=== PATIENT | female | born 1940 | race Caucasian/White ===

== ENCOUNTER 2019-05-28 12:48 | Outpatient (CLI) | payer MEDICARE, BC, SELFPAY ==
[2019-05-28 14:24] LABS: ALT 37 U/L (12-78); AST 29 U/L (15-37); Albumin 3.4 g/dL (3.4-5.0); Alkaline Phosphatase 59 U/L (46-116); Anion Gap 11.1 mmol/L (3-11); BUN 20 mg/dL (7-18); Bilirubin, Total 0.8 mg/dL (0.2-1.0); CO2 23.9 mmol/L (21.0-32.0); CREATININE 0.66 mg/dL (0.55-1.02); Calcium 8.6 mg/dL (8.5-10.1); Chloride 103 mmol/L (98-107); Glucose 104 mg/dL (70-100); Sodium 138 mmol/L (136-145)
[2019-05-28 14:48] LABS: Vitamin D 25 Total 81.3 ng/ml (30-100)
[2019-05-28 21:41] LABS: CRP, High Sensitivity 0.35 mg/L
[2019-05-29 10:58] LABS: Homocysteine 6.8 umol/L (4.5-12.4)
== END 2019-05-28 13:08 ==
PROVIDERS: PCP Family Medicine; Visit Provider Family Medicine
DX: G30.9 Alzheimer's disease, unspecified (principal); I10 Essential (primary) hypertension
CPT/HCPCS: 36415; 80053; 82306; 83090; 86141

== ENCOUNTER 2021-07-27 12:54 | Outpatient (REF) | payer MEDICARE, BC, SELFPAY ==
[2021-07-27 13:53] LABS: Absolute Basophil Count 0.04 10^3/uL (0.0-0.2); Absolute Eosinophil Count 0.23 10^3/uL (0.0-0.7); Absolute Lymphocyte Count 1.59 10^3/uL (1.2-3.4); Absolute Monocyte Count 0.42 10^3/uL (0.1-0.8); Absolute Neutrophil Count 4.39 10^3/uL (1.2-6.7); Basophils % 0.6; Eosinophils % 3.4; HCT 38.7 % (36.0-46.0); HGB 12.7 g/dL (11.2-15.7); Lymphocytes % 23.8; MCH 30.8 pg (27.0-33.0); MCHC 32.8 % (32.0-36.0); MCV 93.9 fL (80-95); MPV 10.2 fL (8.0-11.0); Monocytes % 6.3; Neutrophils % 65.9; Nucleated RBC 0 %; Platelet Count 198 10^3/uL (130-400); RBC 4.12 10^6/uL (3.93-5.22); RDW 12.4 % (11.7-14.6); RDW-SD 42.8 fL; WBC 6.67 10^3/uL (4.4-10.8)
[2021-07-27 14:03] LABS: ALT 23 U/L (14-59); AST 28 U/L (15-37); Albumin 3.1 g/dL (3.4-5.0); Alkaline Phosphatase 50 U/L (46-116); BUN 25 mg/dL (7-18); Bilirubin, Total 0.6 mg/dL (0.2-1.0); CREATININE 0.8 mg/dL (0.55-1.02); Calcium 8.6 mg/dL (8.5-10.1); Chloride 106 mmol/L (98-107); Glucose 102 mg/dL (74-106); Potassium 4.7 mmol/L (3.5-5.1); Sodium 141 mmol/L (136-145); Total Protein 6.2 g/dL (6.4-8.2)
== END 2021-07-27 12:55 | disposition home or self-care (01) ==
LOC: LBN 12:54
PROVIDERS: PCP Family Medicine; Visit Provider Physician Assistant Medical
DX: R10.9 Unspecified abdominal pain (principal)
CPT/HCPCS: 80053; 85025

== ENCOUNTER 2021-07-27 21:13 | Outpatient (REF) | payer MEDICARE, BC, SELFPAY | END 2021-07-27 21:14 | disposition home or self-care (01) | LOC: LBN 21:13 | PROVIDERS: PCP Family Medicine; Visit Provider Physician Assistant Medical | DX: R10.84 Generalized abdominal pain (principal) | CPT/HCPCS: 87077; 87086; 87186 ==

== ENCOUNTER → 2022-06-18 15:49 | Outpatient (CLI) | payer MEDICARE, BC, SELFPAY ==
--- NOTE | 2022-06-18 | DI.RAD_ITS ---
Exam(s) XR HAND RT COMPLETE EXAM: XR HAND RT COMPLETE CLINICAL HISTORY: PAIN IN RIGHT HAND--M79.641. TECHNIQUE: 2D digital imaging was performed. COMPARISON: No exams were available for comparison FINDINGS: 3 views Age-related osteopenia. There is no evidence of acute fracture or dislocation. Multilevel degenerat dillan changes are noted, particularly in the DIP joint of the 2nd-index finger and 1st carpometacarpal joint of the thumb as well as the metacarpophalangeal joint of the thumb. Also in the bones of the w rist at the triscaphe joint. No radiopaque foreign body. No osseous lesions. IMPRESSION: Degenerative changes. No acute fracture. DATA REPOSITORY: RADIATION DOSE DELIVERED:
== END ==
PROVIDERS: PCP Family Medicine; Visit Provider Nurse Practitioner Family
DX: M79.641 Pain in right hand (principal); M18.11 Unilateral primary osteoarthritis of first carpometacarpal joint, right hand; M19.031 Primary osteoarthritis, right wrist; M85.88 Other specified disorders of bone density and structure, other site
CPT/HCPCS: 73130

== ENCOUNTER 2022-07-07 10:30 | Outpatient (CLI) | payer MEDICARE, BC, SELFPAY ==
[2022-07-07 11:35] LABS: ALT 15 U/L (14-59); AST 18 U/L (15-37); Albumin 3.6 g/dL (3.4-5.0); Alkaline Phosphatase 49 U/L (46-116); Anion Gap 6.3 mmol/L (3-11); BUN 18 mg/dL (7-18); Bilirubin, Total 1.2 mg/dL (0.2-1.0); CO2 31.7 mmol/L (21.0-32.0); CREATININE 0.8 mg/dL (0.55-1.02); Calcium 8.9 mg/dL (8.5-10.1); Chloride 101 mmol/L (98-107); Estimated GFR 73.06 (mL/min/1.73m2); Glucose 114 mg/dL (74-106); Potassium 3.9 mmol/L (3.5-5.1); Sodium 139 mmol/L (136-145); Total Protein 7.4 g/dL (6.4-8.2)
== END 2022-07-07 10:31 | disposition home or self-care (01) ==
PROVIDERS: PCP Family Medicine; Visit Provider Nurse Practitioner Family
DX: U07.1 COVID-19 (principal)
CPT/HCPCS: 36415; 80053

== ENCOUNTER 2022-09-05 16:54 | Outpatient (REF) | payer MEDICARE, BC, SELFPAY ==
[2022-09-05 14:06] LABS: HCT 38.8 % (36.0-46.0); HGB 12.9 g/dL (11.2-15.7); MCH 30.2 pg (27.0-33.0); MCHC 33.2 % (32.0-36.0); MCV 91 fL (80-95); MPV 9.6 fL (8.0-11.0); Platelet Count 239 10^3/uL (130-400); RBC 4.27 10^6/uL (3.93-5.22); RDW 12.5 % (11.7-14.6); RDW-SD 41.2 fL; WBC 6.31 10^3/uL (4.4-10.8)
[2022-09-05 14:22] LABS: Anion Gap 6.4 mmol/L (3-11); BUN 30 mg/dL (7-18); CO2 29.6 mmol/L (21.0-32.0); CREATININE 0.7 mg/dL (0.55-1.02); Calcium 8.9 mg/dL (8.5-10.1); Chloride 107 mmol/L (98-107); Estimated GFR 85.76 (mL/min/1.73m2); FREE T4 1.02 ng/dL (0.76-1.46); Glucose 88 mg/dL (74-106); Sodium 143 mmol/L (136-145); TSH 1.24 uIU/mL (0.36-3.74)
[2022-09-05 21:55] LABS: T3,Free 3.3 pg/mL (2.8-5.3)
== END 2022-09-05 16:55 | disposition home or self-care (01) ==
LOC: LBN 16:54
PROVIDERS: PCP Family Medicine; Visit Provider Physician Assistant
DX: R42 Dizziness and giddiness (principal)
CPT/HCPCS: 80048; 85027; 84439; 84443; 84481

== ENCOUNTER 2023-09-12 19:23 | Emergency (ER) | payer MEDICARE, BC, SELFPAY ==
[2023-09-12 19:28] VITALS: BP 144/76; PULSE 80; RESP 16; TEMP 36.2; O2SAT 96
--- OUTSIDE RECORDS SUMMARY | 2023-09-12 19:32 | XMS_ITS | Referral Summary ---
Author Name Unknown Organization [facility] Address [address] [place] [address] Encounter Date(s): 01/09/22 - 01/09/22 [facility] [address] [place], [place] [address] Encounter Diagnosis Head injury(Discharge Diagnosis) - 01/09/22 Abrasion(Discharge Diagnosis) - 01/09/22 Discharge Disposition: Home Attending Physician: SONYA PIÑA MD Vital Signs Most recent to oldest [Reference Range]: 1 2 3 Temperature Temporal [36.3-38 DegC] 36.3 DegC (01/09/22 2:40 PM) Heart Rate [50-100 bpm] 73 bpm (01/09/22 4:53 PM) 75 bpm (01/09/22 4:30 PM) 73 bpm (01/09/22 4:06 PM) Respiratory Rate [11-21 br/min] 18 br/min (01/09/22 4:53 PM) 18 br/min (01/09/22 4:30 PM) 18 br/min (01/09/22 4:06 PM) Oxymetry Monitoring Assessment (01/09/22 4:53 PM) Assessment (01/09/22 4:30 PM) Oxygen Saturation [89-101 %] 94 % (01/09/22 4:53 PM) 94 % (01/09/22 4:30 PM) 93 % (01/09/22 4:06 PM) Oxygen Delivery Room air (01/09/22 4:53 PM) Room air (01/09/22 4:30 PM) Room air (01/09/22 4:06 PM) Vital Signs Note Reviewed discharge instructions. Questions answered. (01/09/22 4:53 PM) Wound on back of head irrgated. (01/09/22 4:41 PM) Blood Pressure 111/58mmHg (01/09/22 4:53 PM) 139/75mmHg (01/09/22 4:30 PM) 104/58mmHg (01/09/22 4:06 PM) Height 165 cm (01/09/22 4:06 PM) 165 cm (01/09/22 2:40 PM) CLINICALWEIGHT 0 kg (01/09/22 4:06 PM) 0 kg (01/09/22 2:40 PM) Dosing Weight Type Bed Scale (01/09/22 4:06 PM) Bed Scale (01/09/22 2:40 PM) [place] Body Weight 56.91 kg (01/09/22 4:06 PM) 56.91 kg (01/09/22 2:40 PM) Height Obtained Patient stated (01/09/22 4:06 PM) Patient stated (01/09/22 2:40 PM) Problem List Diagnosis Diagnosis Type Effective Dates Health Status Clini oneyda Service Informant Head injury Discharge Diagnosis 01/09/22 Abrasion Discharge Diagnosis 01/09/22 Allergies, Adverse Reactions, Alerts No Known Allergies Immunizations Given and Recorded Vaccine Date Status Refusal Reason influenza virus vaccine, inactivated 10/10/21 Yan rded SARS-CoV-2 (COVID-19) mRNA-1273 vaccine 09/12/21 R ecorded SARS-CoV-2 (COVID-19) mRNA-1273 vaccine 01/09/21 R ecorded SARS-CoV-2 (COVID-19) mRNA-1273 vaccine 12/12/20 R ecorded Social History Social History Type Response Smoking Status Never entered on: 01/07/22 Functional Status COGNITIVE 01/09/22 Level of Consciousness Alert, Awake, Follows Commands Affect/Behavior Calm Hospital Discharge Instructions Patient Education 01/09/2022 14:38:08 Abrasions Scrapes (Abrasions): Care Instructions Your Care Instructions Scrapes (abrasions) are wounds where your skin has been rubbed or torn off. Most scrapes do not go deep into the skin, but some may remove several layers of skin. Scrapes usually don't bleed much, but they may ooze pinkish fluid. Scrapes on the head or face may appear worse than they are. They may bleed a lot because of the good blood supply to this area. Most scrapes heal well and may not need a bandage. They usually heal within 3 to 7 days. A large, deep scrape may take 1 to 2 weeks or longer to heal. A scab may form on some scrapes. Follow-up care is a naranjo part of your treatment and safety. Be sure to make and go to all appointments, and call your doctor if you are having problems. It's also a good idea to know your test resultsand keep a list of the medicines you take. How can you care for yourself at home? If your doctor told you how to care for your wound, follow your doctor's instructions. If you did not get instructions, follow this general advice: ??? Wash the scrape with clean water 2 times a day. Don't use hydrogen peroxide or alcohol, which can slow healing. ??? You may cover the scrape with a thin layer of petroleum jelly, such as Vaseline, and a nonstickbandage. ??? Apply more petroleum jelly and replace the bandage as needed. ??? Prop up the injured area on a pillow anytime you sit or lie down during the next 3 days. Try tokeep it above the level of your heart. This will help reduce swelling. ??? Be safe with medicines. Take pain medicines exactly as directed. ??? If the doctor gave you a prescription medicine for pain, take it as prescribed. ??? If you are not taking a prescription pain medicine, ask your doctor if you can take an xtnf-fxx-feflfah medicine. When should you call for help? Call your doctor now or seek immediate medical care if: ??? You have signs of infection, such as: ??? Increased pain, swelling, warmth, or redness around the scrape. ??? Red streaks leading from the scrape. ??? Pus draining from the scrape. ??? A fever. ??? The scrape starts to bleed, and blood soaks through the bandage. Oozing small amounts of blood is normal. Watch closely for changes in your health, and be sure to contact your doctor if the scrape is not getting better each day. Where can you learn more? Go to https://www.healthwise.net/patientEd Enter A374 in the search box to learn more about Scrapes (Abrasions): Care Instructions. Current as of: August 22, 2020?Content Version: 12.9 ?? [employer]. Care instructions adapted under license by your healthcare professional. If you have questions about a medical condition or this instruction, always ask your healthcare professional. [employer] disclaims any warranty or liability for your use of this information. Head Injury: Closed: General Info Learning About a Closed Head Injury What is a closed head injury? A closed head injury happens when your head gets hit hard. The strong force of the blow causes yourbrain to shake in your skull. This movement can cause the brain to bruise, swell, or tear. Sometimes nerves or blood vessels also get damaged. This can cause bleeding in or around the brain. A concussion is a type of closed head injury. What are the symptoms? If you have a mild concussion, you may have a mild headache or feel not quite right. These symptoms are common. They usually go away over a few days to 4 weeks. But sometimes after a concussion, you feel like you can't function as well as before the injury. And you have new symptoms. This is called postconcussive syndrome. You may: ??? Find it harder to solve problems, think, concentrate, or remember. ??? Have headaches. ??? Have changes in your sleep patterns, such as not being able to sleep or sleeping all the time. ??? Have changes in your personality. ??? Not be interested in your usual activities. ??? Feel angry or anxious without a clear reason. ??? Lose your sense of taste or smell. ??? Be dizzy, lightheaded, or unsteady. It may be hard to stand or walk. How is a closed head injury treated? Any person who may have a concussion needs to see a doctor. Some people have to stay in the hospital to be watched. Others can go home safely. If you go home, follow your doctor's instructions. Sean crump will tell you if you need someone to watch you closely for the next 24 hours or longer. Rest is the best treatment. Get plenty of sleep at night. And try to rest during the day. ??? Avoid activities that are physically or mentally demanding. These include housework, exercise, and schoolwork. And don't play video games, send text messages, or use the computer. You may need tochange your school or work schedule to be able to avoid these activities. ??? Ask your doctor when it's okay to drive, ride a bike, or operate machinery. ??? Take an xlun-vib-chrcpwa pain medicine, such as acetaminophen (Tylenol), ibuprofen (Advil, Motrin), or naproxen (Aleve). Be safe with medicines. Read and follow all instructions on the label. ??? Check with your doctor before you use any other medicines for pain. ??? Do not drink alcohol or use illegal drugs. They can slow recovery. They can also increase your risk of getting a second head injury. Follow-up care is a naranjo part of your treatment and safety. Be sure to make and go to all appointments, and call your doctor if you are having problems. It's also a good idea to know your test resultsand keep a list of the medicines you take. Where can you learn more? Go to https://www.[employer].net/patientEd Enter E235 in the search box to learn more about Learning About a Closed Head Injury. Current as of: June 07, 2020?Content Version: 12.9 ?? [employer]. Care instructions adapted under license by your healthcare professional. If you have questions about a medical condition or this instruction, always ask your healthcare professional. [employer] disclaims any warranty or liability for your use of this information. Follow Up Care 01/09/2022 14:38:08 With:*Follow up with primary care provider Address:Unknown When:1 Week
--- OUTSIDE RECORDS SUMMARY | 2023-09-12 19:32 | XMS_ITS | Referral Summary ---
Author Name Unknown Organization [facility] Address [address] [place] [address] Encounter Date(s): 03/29/20 - 03/29/20 [facility] [address] [place] [address]- Encounter Diagnosis Cystitis(Discharge Diagnosis) - 03/29/20 Discharge Disposition: Home Attending Physician: ANAND PÉREZ DO Vital Signs Most recent to oldest [Reference Range]: 1 2 Temperature Temporal [36.3-38 DegC] 36.2 DegC *LOW* (03/29/20 1:38 PM) Heart Rate [50-100 bpm] 75 bpm (03/29/20 5:03 PM) 87 bpm (03/29/20 1:38 PM) Respiratory Rate [11-21 br/min] 18 br/mi n (03/29/20 5:03 PM) 18 br/min (03/29/20 1:38 PM) Oxygen Saturation [89-101 %] 96 % (03/29/20 5:03 PM) 91 % (03/29/20 1:38 PM) Oxygen Delivery Room air (03/29/20 5:03 PM) Blood Pressure 121/82mmHg (03/29/20 5:03 PM) 162/60mmHg (03/29/20 1:38 PM) Height 0 cm (03/29/20 3:43 PM) CLINICALWEIGHT 58.40 kg (03/29/20 3:43 PM) 58.40 kg (03/29/20 1:38 PM) Dosing Weight Type Standing Scale (03/29/20 3:43 PM) Standing Scale (03/29/20 1:38 PM) Height Obtained Patient stated (03/29/20 3:43 PM) Problem List Diagnosis Diagnosis Type Effective Dates Health Status Clini oneyda Service Informant Cystitis Discharge Diagnosis 03/29/20 Allergies, Adverse Reactions, Alerts No Known Allergies Medications cephalexin 500 mg oral capsule 500 mg = 1 Cap(s), Oral, Q12H, X 5 Day(s), # 10 Cap(s), Refill(s) 0, Pharmacy: [id number], 165, cm, 10/19/19 7:11:00 MST, Height, 58.4, kg, 03/29/20 15:43:00 MST, CLINICALWEIGHT Start Date: 03/29/20 Stop Date: 04/03/20 Status: Ordered phenazopyridine 100 mg oral tablet 100 mg = 1 Tab(s), Oral, TID, PRN Urinary Discomfort, X 2 Day(s), # 6 Tab(s), Refill(s) 0, Pharmacy: [facility] #[id number], 165, cm, 10/19/19 7:11:00 MST, Height, 58.4, kg, 03/29/20 15:43:00 MST, CLINICALWEIGHT Start Date: 03/29/20 Stop Date: 03/31/20 Status: Ordered Results Most recent to oldest [Reference Range]: 1 UA Mucus Few (03/29/20 3:30 PM) Urine Microscopic Yes *NA* (03/29/20 3:30 PM) UA Clarity [Clear] Cloudy *NA* (03/29/20 3:30 PM) UA Bacteria Few *ABN* (03/29/20 3:30 PM) UA Bili [Negative] Negative (03/29/20 3:30 PM) UA Blood [Negative] Large *ABN* (03/29/20 3:30 PM) UA Color [Yellow] Dark-Yellow (03/29/20 3:30 PM) UA Glucose [Negative mg/dL] Negative mg/ dL (03/29/20 3:30 PM) UA Ketones [Negative mg/dL] 5 mg/dL *ABN* (03/29/20 3:30 PM) UA Leuk Est [Negative] Moderate *ABN* (03/29/20 3:30 PM) UA Nitrite [Negative] Positive *ABN* (03/29/20 3:30 PM) UA pH [5.0-8.0 pH] 5.0 pH (03/29/20 3:30 PM) UA Protein [Negative mg/dL] 30 mg/dL *ABN* (03/29/20 3:30 PM) UA RBC [0-2 cells/hpf] 242 cells/hpf *HI* (03/29/20 3:30 PM) UA Spec Grav [1.000-1.030] 1.017 (03/29/20 3:30 PM) UA Epithelial [0-1 cells/hpf] <1 cells/h pf (03/29/20 3:30 PM) UA Urobilinogen [<2.0] <2.0 (03/29/20 3:30 PM) UA WBC [0-2 cells/hpf] 68 cells/hpf *HI* (03/29/20 3:30 PM) Microbiology Reports TEST:Urine Culture STATUS:Order in Progress BODY SITE: SOURCE:Urine, Clean Catch COLLECTED DATE/TIME:03/29/20 3:30 PM PRELIMINARY REPORT >100,000 cfu/ml Escherichia coli Susceptibility to follow. Social History Social History Type Response Smoking Status Never (less than 100 in lifetime) entered on: 03/29/20 Functional Status COGNITIVE 03/29/20 Level of Consciousness Alert Affect/Behavior Calm, Cooperative Hospital Discharge Instructions Patient Education 03/29/2020 13:28:13 Urinary Tract Infection Urinary Tract Infection Urinary tract infections (UTIs) can develop anywhere along your urinary tract. Your urinary tract is your body's drainage system for removing wastes and extra water. Your urinary tract includes two kidneys, two ureters, a bladder, and a urethra. Your kidneys are a pair of ding-shaped organs. Each kidney is about the size of your fist. They are located below your ribs, one on each side of your spine. CAUSES Infections are caused by microbes, which are microscopic organisms, including fungi, viruses, and bacteria. These organisms are so small that they can only be seen through a microscope. Bacteria are the microbes that most commonly cause UTIs. SYMPTOMS Symptoms of UTIs may vary by age and gender of the patient and by the location of the infection. Symptoms in young women typically include a frequent and intense urge to urinate and a painful, burning feeling in the bladder or urethra during urination. Older women and men are more likely to be tired, shaky, and weak and have muscle aches and abdominal pain. A fever may mean the infection is in your kidneys. Other symptoms of a kidney infection include pain in your back or sides below the ribs, nausea, and vomiting. DIAGNOSIS To diagnose a UTI, your caregiver will ask you about your symptoms. Your caregiver also will ask toprovide a urine sample. The urine sample will be tested for bacteria and white blood cells. White blood cells are made by your body to help fight infection. TREATMENT Typically, UTIs can be treated with medication. Because most UTIs are caused by a bacterial infection, they usually can be treated with the use of antibiotics. The choice of antibiotic and length of treatment depend on your symptoms and the type of bacteria causing your infection. HOME CARE INSTRUCTIONS ?If you were prescribed antibiotics, take them exactly as your caregiver instructs you. Finish the medication even if you feel better after you have only taken some of the medication. ?Drink enough water and fluids to keep your urine clear or pale yellow. ?Avoid caffeine, tea, and carbonated beverages. They tend to irritate your bladder. ?Empty your bladder often. Avoid holding urine for long periods of time. ?Empty your bladder before and after sexual intercourse. ?After a bowel movement, women should cleanse from front to back. Use each tissue only once. SEEK MEDICAL CARE IF: ?You have back pain. ?You develop a fever. ?Your symptoms do not begin to resolve within 3 days. SEEK IMMEDIATE MEDICAL CARE IF: ?You have severe back pain or lower abdominal pain. ?You develop chills. ?You have nausea or vomiting. ?You have continued burning or discomfort with urination. MAKE SURE YOU: ?Understand these instructions. ?Will watch your condition. ?Will get help right away if you are not doing well or get worse. This information is not intended to replace advice given to you by your health care provider. Make sure you discuss any questions you have with your health care provider. Document Released: 07/31/2006 Document Revised: 11/11/2015 Document Reviewed: 11/28/2012 [employer] Patient Education ??2016 [employer] Follow Up Care 03/29/2020 13:28:13 With:Please return to the emergency room if symptoms worsen or new symptoms occur. Please follow-up with your primary care provider by telephone tomorrow and schedule an appointment soon. Address: When:Call for next available appointment
--- OUTSIDE RECORDS SUMMARY | 2023-09-12 19:32 | XMS_ITS | Referral Summary ---
Author Name Unknown Organization [facility] Address [address] [place] [address] Encounter Date(s): 12/07/20 - 12/07/20 [facility] [address] [place] [address]- Encounter Diagnosis Shingles(Discharge Diagnosis) - 12/07/20 Pain of right side of body(Discharge Diagnosis) - 12/07/20 Discharge Disposition: Home Attending Physician: RODNEY NUÑEZ, MIMI Bae Vital Signs Most recent to oldest [Refer ence Range]: 1 2 Temperature Temporal [36.3-38 DegC] 36.8 DegC (12/07/20 11:12 AM) Heart Rate [50-100 bpm] 71 bpm (12/07/20 11:43 AM) 77 bpm (12/07/20 11:12 AM) Respiratory Rate [11-21 br/min] 18 br/mi n (12/07/20 11:43 AM) 18 br/min (12/07/20 11:12 AM) Oxygen Saturation [89-101 %] 97 % (12/07/20 11:43 AM) 96 % (12/07/20 11:12 AM) Vital Signs Note SEE FLOW SHEET (12/07/20 12:44 PM) PLAN OF CARE REVIEWED [facility] PT AND (12/07/20 12:43 PM) Blood Pressure 128/67mmHg (12/07/20 11:43 AM) 113/61mmHg (12/07/20 11:12 AM) Height 170 cm (12/07/20 11:43 AM) 170 cm (12/07/20 11:12 AM) CLINICALWEIGHT 56.8 kg (12/07/20 11:43 AM) 56.8 kg (12/07/20 11:12 AM) Dosing Weight Type Standing Scale (12/07/20 11:43 AM) Standing Scale (12/07/20 11:12 AM) Body Mass Index 19.65 kg/m2 (12/07/20 11:43 AM) 19.65 kg/m2 (12/07/20 11:12 AM) [place] Body Weight 61.44 kg (12/07/20 11:43 AM) 61.44 kg (12/07/20 11:12 AM) Height Obtained Patient stated (12/07/20 11:43 AM) Patient stated (12/07/20 11:12 AM) Problem List Diagnosis Diagnosis Type Effective Dates Health Status Cl inical Service Informant Shingles Discharge Diagnosis 12/07/20 Pain of right side of body Discharge Diagnosis 12/07/20 Allergies, Adverse Reactions, Alerts No Known Allergies Medications ibuprofen 600 mg oral tablet 600 mg = 1 Tab(s), Oral, Q8H, # 30 Tab(s), Refill(s) 0, Pharmacy: [facility]/pharmacy #[id number], 170, cm, 12/07/20 11:43:00 MST, Height, 56.8, kg, 12/07/20 11:43:00 MST, CLINICALWEIGHT Start Date: 12/07/20 Stop Date: 01/06/21 Status: Ordered Valtrex 500 mg oral tablet 500 mg = 1 Tab(s), Oral, BID, X 7 Day(s), # 14 Tab(s), Refill(s) 0, [id number], 170, cm, 12/07/20 11:43:00 MST, Height, 56.8, kg, 12/07/20 11:43:00 MST, CLINICALWEIGHT Start Date: 12/07/20 Stop Date: 12/14/20 Status: Ordered Social History Social History Type Response Smoking Status Never (less than 100 in lifetime) entered on: 12/07/20 Functional Status COGNITIVE 12/07/20 Level of Consciousness Alert, Awake Affect/Behavior Calm Hospital Discharge Instructions Patient Education 12/07/2020 11:09:20 Shingles Shingles - possible Shingles, which is also known as herpes zoster, is an infection that causes a painful skin rash andfluid-filled blisters. It is caused by a virus. Shingles only develops in people who: ??? Have had chickenpox. ??? Have been given a medicine to protect against chickenpox (have been vaccinated). Shingles is rare in this group. What are the causes? Shingles is caused by varicella-zoster virus (VZV). This is the same virus that causes chickenpox. After a person is exposed to VZV, the virus stays in the body in an inactive (dormant) state. Shingles develops if the virus is reactivated. This can happen many years after the first (initial) exposure to VZV. It is not known what causes this virus to be reactivated. What increases the risk? People who have had chickenpox or received the chickenpox vaccine are at risk for shingles. Shingles infection is more common in people who: ??? Are older than age 60. ??? Have a weakened disease-fighting system (immune system), such as people with: ? HIV. ? AIDS. ? Cancer. ??? Are taking medicines that weaken the immune system, such as transplant medicines. ??? Are experiencing a lot of stress. What are the signs or symptoms? Early symptoms of this condition include itching, tingling, and pain in an area on your skin. Pain may be described as burning, stabbing, or throbbing. A few days or weeks after early symptoms start, a painful red rash appears. The rash is usually on one side of the body and has a band-like or belt-like pattern. The rash eventually turns into fluid-filled blisters that break open, change into scabs, and dry up in about 2???3 weeks. At any time during the infection, you may also develop: ??? A fever. ??? Chills. ??? A headache. ??? An upset stomach. How is this diagnosed? This condition is diagnosed with a skin exam. Skin or fluid samples may be taken from the blisters before a diagnosis is made. These samples are examined under a microscope or sent to a lab for testing. How is this treated? The rash may last for several weeks. There is not a specific cure for this condition. Your health care provider will probably prescribe medicines to help you manage pain, recover more quickly, and avoid long-term problems. Medicines may include: ??? Antiviral drugs. ??? Anti-inflammatory drugs. ??? Pain medicines. ??? Anti-itching medicines (antihistamines). If the area involved is on your face, you may be referred to a specialist, such as an eye doctor (onboarding specialist) or an ear, nose, and throat (ENT) doctor (landscape maintenance internship) to help you avoid eye problems, chronic pain, or disability. Follow these instructions at home: Medicines ??? Take ynmp-jeb-oxxmxmb and prescription medicines only as told by your health care provider. ??? Apply an anti-itch cream or numbing cream to the affected area as told by your health care provider. Relieving itching and discomfort ??? Apply cold, wet cloths (cold compresses) to the area of the rash or blisters as told by your health care provider. ??? Cool baths can be soothing. Try adding baking soda or dry oatmeal to the water to reduce itching. Do not bathe in hot water. Blister and rash care ??? Keep your rash covered with a loose bandage (dressing). Wear loose-fitting clothing to help ease the pain of material rubbing against the rash. ??? Keep your rash and blisters clean by washing the area with mild soap and cool water as told by your health care provider. ??? Check your rash every day for signs of infection. Check for: ? More redness, swelling, or pain. ? Fluid or blood. ? Warmth. ? Pus or a bad smell. ??? Do not scratch your rash or pick at your blisters. To help avoid scratching: ? Keep your fingernails clean and cut short. ? Wear gloves or mittens while you sleep, if scratching is a problem. General instructions ??? Rest as told by your health care provider. ??? Keep all follow-up visits as told by your health care provider. This is important. ??? Wash your hands often with soap and water. If soap and water are not available, use hand fire boat engineer. Doing this lowers your chance of getting a bacterial skin infection. ??? Before your blisters change into scabs, your shingles infection can cause chickenpox in people who have never had it or have never been vaccinated against it. To prevent this from happening, avoid contact with other people, especially: ? Babies. ? women. ? Children who have eczema. ? Elderly people who have transplants. ? People who have chronic illnesses, such as cancer or AIDS. Contact a health care provider if: ??? Your pain is not relieved with prescribed medicines. ??? Your pain does not get better after the rash heals. ??? You have signs of infection in the rash area, such as: ? More redness, swelling, or pain around the rash. ? Fluid or blood coming from the rash. ? The rash area feeling warm to the touch. ? Pus or a bad smell coming from the rash. Get help right away if: ??? The rash is on your face or nose. ??? You have facial pain, pain around your eye area, or loss of feeling on one side of your face. ??? You have difficulty seeing. ??? You have ear pain or have ringing in your ear. ??? You have a loss of taste. ??? Your condition gets worse. Summary ??? Shingles, which is also known as herpes zoster, is an infection that causes a painful skin rashand fluid-filled blisters. ??? This condition is diagnosed with a skin exam. Skin or fluid samples may be taken from the blisters and examined before the diagnosis is made. ??? Keep your rash covered with a loose bandage (dressing). Wear loose-fitting clothing to help ease the pain of material rubbing against the rash. ??? Before your blisters change into scabs, your shingles infection can cause chickenpox in people who have never had it or have never been vaccinated against it. This information is not intended to replace advice given to you by your health care provider. Make sure you discuss any questions you have with your health care provider. Document Released: 10/21/2006 Document Revised: 06/25/2018 Document Reviewed: 06/25/2018 [employer] Interactive Patient Education ?? 2020 [employer]. Follow Up Care 12/07/2020 11:09:20 With:*Follow up with primary care provider Address:Unknown When:5 to 7 days
--- OUTSIDE RECORDS SUMMARY | 2023-09-12 19:32 | XMS_ITS | Referral Summary ---
Author Name Unknown Organization [facility] Address [address] [place] [address] Encounter Date(s): 10/10/17 - 10/10/17 [facility] [address] [place] [address]- Discharge Disposition: Home Attending Physician: [place] NUÑEZ, LENCHO SARMIENTO Vital Signs Most recent to oldest [Reference Range]: 1 2 3 Temperature Temporal [36.3-37.8 DegC] 36.7 DegC (10/10/17 10:32 AM) Heart Rate [50-100 bpm] 56 bpm (10/10/17 12:23 PM) 66 bpm (10/10/17 11:14 AM) 77 bpm (10/10/17 10:32 AM) Respiratory Rate [11-21 br/min] 18 br/min (10/10/17 12:23 PM) 18 br/min (10/10/17 11:14 AM) 18 br/min (10/10/17 10:32 AM) Oxygen Saturation [89-101 %] 95 % (10/10/17 12:23 PM) 95 % (10/10/17 11:14 AM) 99 % (10/10/17 10:32 AM) Blood Pressure 136/75mmHg (10/10/17 12:23 PM) 137/75mmHg (10/10/17 11:14 AM) 126/69mmHg (10/10/17 10:32 AM) Height 168 cm (10/10/17 11:14 AM) CLINICALWEIGHT 60 kg (10/10/17 11:14 AM) 60 kg (10/10/17 10:32 AM) Dosing Weight Type Standing Scale (10/10/17 11:14 AM) Bed Scale (10/10/17 10:32 AM) Body Mass Index 21.26 kg/m2 (10/10/17 11:14 AM) [place] Body Weight 59.62 kg (10/10/17 11:14 AM) Height Obtained Patient stated (10/10/17 11:14 AM) Problem List Diagnosis Diagnosis Type Effective Dates Health Status inical Service Informant Knee contusion Discharge Diagnosis 10/10/17 Non-Specified Skin abrasion Discharge Diagnosis 10/10/17 Non-Specified Allergies, Adverse Reactions, Alerts No Known Allergies Medications mupirocin 2% topical cream 1 Judson, Topical, TID, apply a thin film to right elbow and left jiménez, # 30 Gram(s), Refill(s) 0, Pharmacy: [id number], Acute Start Date: 10/10/17 Stop Date: 11/09/17 Status: Ordered naproxen 500 mg oral tablet 500 mg = 1 Tab(s), Oral, BID, PRN Pain, with food, # 60 Tab(s), Refill(s) 0, Pharmacy: [id number] Start Date: 10/10/17 Stop Date: 11/09/17 Status: Ordered Social History Social History Type Response Smoking Status Never smoker Functional Status COGNITIVE 10/10/17 Affect/Behavior Calm 10/10/17 Level of Consciousness Alert, Awake Hospital Discharge Instructions Patient Education 10/10/2017 10:20:55 Cryotherapy, Iesp-gn-Ynip Cryotherapy Cryotherapy is when you put ice on your injury. Ice helps lessen pain and puffiness (swelling) after an injury. Ice works the best when you start using it in the first 24 to 48 hours after an injury. HOME CARE ?Put a dry or damp towel between the ice pack and your skin. ?You may press gently on the ice pack. ?Leave the ice on for no more than 10 to 20 minutes at a time. ?Check your skin after 5 minutes to make sure your skin is okay. ?Rest at least 20 minutes between ice pack uses. ?Stop using ice when your skin loses feeling (numbness). ?Do not use ice on someone who cannot tell you when it hurts. This includes small children and people with memory problems (dementia). GET HELP RIGHT AWAY IF: ?You have white spots on your skin. ?Your skin turns blue or pale. ?Your skin feels waxy or hard. ?Your puffiness gets worse. MAKE SURE YOU: ?Understand these instructions. ?Will watch your condition. ?Will get help right away if you are not doing well or get worse. This information is not intended to replace advice given to you by your health care provider. Make sure you discuss any questions you have with your health care provider. Document Released: 04/08/2009 Document Revised: 01/12/2013 Document Reviewed: 06/12/2012 [employer] Interactive Patient Education ??2016 [employer] Knee Sprain, Xapv-bb-Gmvu Knee Sprain A knee sprain is a tear in the strong bands of tissue that connect the bones (ligaments) of your knee. HOME CARE ?Raise (elevate) your injured knee to lessen puffiness (swelling). ?To ease pain and puffiness, put ice on the injured area. ?Put ice in a plastic bag. ?Place a towel between your skin and the bag. ?Leave the ice on for 20 minutes, 2???3 times a day. ?Only take medicine as told by your doctor. ? Do not leave your knee unprotected until pain and stiffness go away (usually 4???6 weeks). ?If you have a cast or splint, do not get it wet. If your doctor told you to not take it off,cover it with a plastic bag when you shower or bathe. Do not swim. ?Your doctor may have you do exercises to prevent or limit permanent weakness and stiffness. GET HELP RIGHT AWAY IF: ?Your cast or splint becomes damaged. ?Your pain gets worse. ?You have a lot of pain, puffiness, or numbness below the cast or splint. MAKE SURE YOU: ?Understand these instructions. ?Will watch your condition. ?Will get help right away if you are not doing well or get worse. This information is not intended to replace advice given to you by your health care provider. Make sure you discuss any questions you have with your health care provider. Document Released: 10/09/2010 Document Revised: 10/26/2014 Document Reviewed: 06/29/2014 [employer] Interactive Patient Education ??2016 [employer] RICE for Routine Care of Injuries, Tkyu-ld-Mqgr RICE for Routine Care of Injuries Many injuries can be cared for using rest, ice, compression, and elevation (RICE). Using the RICE plan can help to lessen pain and swelling. It can help your body heal. Rest Reduce your normal activities and avoid using the injured part of your body. You can go back to your normal activities when you feel okay and your doctor says it is okay. Ice Do not put ice on your bare skin. ?Put ice in a plastic bag. ?Place a towel between your skin and the bag. ?Leave the ice on for 20 minutes, 2???3 times a day. Do this for as long as told by your doctor. Compression Compression means putting pressure on the injured area. This can be done with an elastic bandage. If an elastic bandage has been applied: ?Remove and reapply the bandage every 3???4 hours or as told by your doctor. ?Make sure the bandage is not wrapped too tight. Wrap the bandage looser if part of your bodybeyond the bandage is blue, swollen, cold, painful, or loses feeling (numb). ?See your doctor if the bandage seems to make your problems worse. Elevation Elevation means keeping the injured area raised. Raise the injured area above your heart or the center of your chest if you can. WHEN SHOULD I GET HELP? You should get help if: ?You keep having pain and swelling. ?Your symptoms are getting worse. WHEN SHOULD I GET HELP RIGHT AWAY? You should get help right away if: ?You have sudden bad pain at or below the area of your injury. ?You have redness or more swelling around your injury. ?You have tingling or numbness at or below the injury that does not go away when you remove the bandage. This information is not intended to replace advice given to you by your health care provider. Make sure you discuss any questions you have with your health care provider. Document Released: 04/08/2009 Document Revised: 01/12/2013 Document Reviewed: 09/28/2015 [employer] Interactive Patient Education ??2016 [employer] Follow Up Care 10/10/2017 10:20:55 With:Follow up with primary care provider Address:Unknown When:Call for next available appointment
--- OUTSIDE RECORDS SUMMARY | 2023-09-12 19:32 | XMS_ITS | Referral Summary ---
Author Name Unknown Organization [facility] Address [address] [place] [address] Encounter Date(s): 01/07/22 - 01/07/22 [facility] [address] [place], [place] [address] Encounter Diagnosis Constipation(Discharge Diagnosis) - 01/07/22 Discharge Disposition: Home Attending Physician: JOSHUA MOREIRA MD Vital Signs Most recent to oldest [Reference Range]: 1 2 Temperature Temporal [36.3-38 DegC] 35.8 DegC *LOW* (01/07/22 10:48 AM) Heart Rate [50-100 bpm] 72 bpm (01/07/22 1:18 PM) 64 bpm (01/07/22 10:48 AM) Respiratory Rate [11-21 br/min] 16 br/mi n (01/07/22 1:18 PM) 16 br/min (01/07/22 10:48 AM) Oxygen Saturation [89-101 %] 97 % (01/07/22 1:18 PM) 97 % (01/07/22 10:48 AM) Oxygen Delivery Room air (01/07/22 1:18 PM) Blood Pressure 146/60mmHg (01/07/22 1:18 PM) 140/62mmHg (01/07/22 10:48 AM) Height 167 cm (01/07/22 11:07 AM) CLINICALWEIGHT 56.95 kg (01/07/22 11:07 AM) 56.95 kg (01/07/22 10:48 AM) Dosing Weight Type Standing Scale (01/07/22 11:07 AM) Standing Scale (01/07/22 10:48 AM) Body Mass Index 20.42 kg/m2 (01/07/22 11:07 AM) [place] Body Weight 58.73 kg (01/07/22 11:07 AM) Height Obtained Estimated (01/07/22 11:07 AM) Problem List Diagnosis Diagnosis Type Effective Dates [facility] In[facility]ant Constipation Discharge Diagnosis 01/07/22 Allergies, Adverse Reactions, Alerts No Known Allergies Medications Colace 100 mg oral capsule 100 mg = 1 Cap(s), Oral, BID, with plenty of water, discontinue for loose stools, # 60 Cap(s), Refill(s) 0, [id number], 167, cm, 01/07/22 11:07:00 MST, Height, 56.95, kg, 01/07/22 11:07:00 MST, CLINICALWEIGHT Start Date: 01/07/22 Stop Date: 02/06/22 Status: Ordered donepezil (Aricept), 5 mg, Oral, Daily Start Date: 01/07/22 Stop Date: 02/06/22 Status: Ordered Dulcolax Laxative 10 mg rectal suppository 10 mg = 1 supp, Rectal, Daily, PRN as needed for constipation, # 10 supp, Refill(s) 0, [id number], 167, cm, 01/07/22 11:07:00 MST, Height, 56.95, kg, 01/07/22 11:07:00 MST, CLINICALWEIGHT Start Date: 01/07/22 Stop Date: 02/06/22 Status: Ordered levothyroxine (Synthroid), 25 mcg = 1 Tab(s), Oral, Daily Start Date: 01/07/22 Stop Date: 02/06/22 Status: Ordered liothyronine 5 mcg, Oral, BID Start Date: 01/07/22 Stop Date: 02/06/22 Status: Ordered memantine 5 mg, Oral, Daily Start Date: 01/07/22 Stop Date: 02/06/22 Status: Ordered senna 15 mg oral tablet 30 mg = 2 Tab(s), Oral, Daily, PRN as needed for constipation, # 24 Tab(s), Refill(s) 0, Pharmacy: [facility]/pharmacy #[id number], Acute, 167, cm, 01/07/22 11:07:00 MST, Height, 56.95, kg, 01/07/22 11:07:00 MST,CLINICALWEIGHT Start Date: 01/07/22 Stop Date: 02/06/22 Status: Ordered sertraline (Zoloft), 50 mg = 1 Tab(s), Oral, Daily Start Date: 01/07/22 Stop Date: 02/06/22 Status: Ordered Results Most recent to oldest [Reference Range]: 1 Urine Microscopic No *NA* (01/07/22 12:46 PM) UA Clarity [Clear] Hazy *NA* (01/07/22 12:46 PM) UA Bili [Negative] Negative (01/07/22 12:46 PM) UA Blood [Negative] Negative (01/07/22 12:46 PM) UA Color [Yellow] Dark-Yellow *NA* (01/07/22 12:46 PM) UA Glucose [Negative mg/dL] Negative mg/ dL (01/07/22 12:46 PM) UA Ketones [Negative mg/dL] 5 mg/dL *ABN* (01/07/22 12:46 PM) UA Leuk Est [Negative] Negative (01/07/22 12:46 PM) UA Nitrite [Negative] Negative (01/07/22 12:46 PM) UA pH [5.0-8.0 pH] 5.0 pH (01/07/22 12:46 PM) UA Protein [Negative] Negative (01/07/22 12:46 PM) UA Spec Grav [1.000-1.030] 1.021 (01/07/22 12:46 PM) UA Urobilinogen [<2.0] 2.0 *ABN* (01/07/22 12:46 PM) Immunizations Given and Recorded Vaccine Date Status Refusal Reason influenza virus vaccine, inactivated 10/10/21 Yan rded SARS-CoV-2 (COVID-19) mRNA-1273 vaccine 09/12/21 R ecorded SARS-CoV-2 (COVID-19) mRNA-1273 vaccine 01/09/21 R ecorded SARS-CoV-2 (COVID-19) mRNA-1273 vaccine 12/12/20 R ecorded Social History Social History Type Response Smoking Status Never entered on: 01/07/22 Hospital Discharge Instructions Patient Education 01/07/2022 10:42:30 Constipation Constipation: Care Instructions Your Care Instructions Constipation means that you have a hard time passing stools (bowel movements). People pass stools from 3 times a day to once every 3 days. What is normal for you may be different. Constipation may occur with pain in the rectum and cramping. The pain may get worse when you try to pass stools. Sometimes there are small amounts of bright red blood on toilet paper or the surface of stools. This is because of enlarged veins near the rectum (hemorrhoids). A few changes in your diet and lifestyle may help you avoid ongoing constipation. Your doctor may also prescribe medicine to help loosen your stool. Some medicines can cause constipation. These include pain medicines and antidepressants. Tell your doctor about all the medicines you take. Your doctor may want to make a medicine change to ease yoursymptoms. Follow-up care is a naranjo part of your treatment and safety. Be sure to make and go to all appointments, and call your doctor if you are having problems. It's also a good idea to know your test resultsand keep a list of the medicines you take. How can you care for yourself at home? Drink plenty of fluids. If you have kidney, heart, or liver disease and have to limit fluids, talk with your doctor before you increase the amount of fluids you drink. ??? Include high-fiber foods in your diet each day. These include fruits, vegetables, beans, and whole grains. ??? Get at least 30 minutes of exercise on most days of the week. Walking is a good choice. You also may want to do other activities, such as running, swimming, cycling, or playing tennis or team sports. ??? Take a fiber supplement, such as Citrucel or Metamucil, every day. Read and follow all instructions on the label. ??? Schedule time each day for a bowel movement. A daily routine may help. Take your time having your bowel movement. ??? Support your feet with a small step stool when you sit on the toilet. This helps flex your hipsand places your pelvis in a squatting position. ??? Your doctor may recommend an tzie-btu-sqxkgei laxative to relieve your constipation. Examples are Milk of Magnesia and MiraLax. Read and follow all instructions on the label. Do not use laxativeson a long-term basis. When should you call for help? Call your doctor now or seek immediate medical care if: ??? You have new or worse belly pain. ??? You have new or worse nausea or vomiting. ??? You have blood in your stools. Watch closely for changes in your health, and be sure to contact your doctor if: ??? Your constipation is getting worse. ??? You do not get better as expected. Where can you learn more? Go to https://www.[employer]net/patientEd Enter P343 in the search box to learn more about Constipation: Care Instructions. Current as of: August 22, 2020?Content Version: 12.9 ?? 7501-0971 [employer]. Care instructions adapted under license by your healthcare professional. If you have questions about a medical condition or this instruction, always ask your healthcare professional. [employer] disclaims any warranty or liability for your use of this information. Follow Up Care 01/07/2022 10:42:30 With:*Follow up with primary care provider Address: When:Call for next available appointment Comments:Call for next available appointment
--- OUTSIDE RECORDS SUMMARY | 2023-09-12 19:32 | XMS_ITS | Referral Summary ---
Author Name Unknown Organization [facility] Address [address] [place] [address] Encounter Date(s): 04/04/19 - 04/04/19 [facility] [address] [place] [address]- Encounter Diagnosis Acute chemical conjunctivitis(Discharge Diagnosis) - 04/04/19 Discharge Disposition: Home Attending Physician: KIRK BRYANT MD Vital Signs Most recent to oldest [Reference Range]: 1 2 Temperature Temporal [36.3-38 DegC] 36.2 DegC *LOW* (04/04/19 3:05 AM) Heart Rate [50-100 bpm] 58 bpm (04/04/19 4:51 AM) 90 bpm (04/04/19 3:05 AM) Respiratory Rate [11-21 br/min] 16 br/mi n (04/04/19 4:51 AM) 18 br/min (04/04/19 3:05 AM) Oxygen Saturation [89-101 %] 96 % (04/04/19 4:51 AM) 95 % (04/04/19 3:05 AM) Oxygen Delivery Room air (04/04/19 4:51 AM) Blood Pressure 132/68mmHg (04/04/19 4:51 AM) 179/81mmHg (04/04/19 3:05 AM) Height 162 cm (04/04/19 3:07 AM) 162 cm (04/04/19 3:05 AM) CLINICALWEIGHT 58.4 kg (04/04/19 3:07 AM) 58.4 kg (04/04/19 3:05 AM) Dosing Weight Type Standing Scale (04/04/19 3:07 AM) Standing Scale (04/04/19 3:05 AM) Body Mass Index 22.25 kg/m2 (04/04/19 3:07 AM) 22.25 kg/m2 (04/04/19 3:05 AM) [place] Body Weight 54.19 kg (04/04/19 3:07 AM) 54.19 kg (04/04/19 3:05 AM) Height Obtained Patient stated (04/04/19 3:07 AM) Problem List Diagnosis Diagnosis Type Effective Dates Health Status Clinical Service Informant Acute chemical conjunctivitis Discharge Diagnosis 04/04/19 Non-Specified Allergies, Adverse Reactions, Alerts No Known Allergies Medications tobramycin 0.3% ophthalmic ointment 1 [place], Eye-Right, TID, # 3.5 Gram(s), Refill(s) 0, Pharmacy: [facility] [id number], Acute Start Date: 04/04/19 Stop Date: 05/04/19 Status: Ordered Social History Social History Type Response Smoking Status Never (less than 100 in lifetime); Type: Cigarettes entered on: 04/04/19 Functional Status COGNITIVE 04/04/19 General Assessment WDL Level of Consciousness Alert, Awake Orientation Oriented x 4 Affect/Behavior Calm, Cooperative Hospital Discharge Instructions Patient Education 04/04/2019 03:01:59 Chemical Conjunctivitis Chemical Conjunctivitis Chemical conjunctivitis is eye inflammation from exposure to an irritant or chemical substance. This causes the clear membrane that covers the white part of your eye and the inner surface of your eyelid (conjunctiva) to become inflamed. When the blood vessels in the conjunctiva become inflamed, theeye may become red, pink, and itchy. Chemical conjunctivitis can occur in one or both eyes. It cannot be spread by one person to anotherperson (noncontagious). CAUSES This condition is caused by exposure to a chemical substance or irritant, such as: ?Smoke. ?Chlorine. ?Soap. ?Fumes. ?Air pollution. RISK FACTORS This condition is more likely to develop in: ?People who live somewhere with high levels of air pollution. ?People who use swimming pools often. SYMPTOMS Symptoms of this condition may include: ?Eye redness. ?Tearing of the eyes. ?Watery eyes. ?Itchy eyes. ?Burning feeling in the eyes. ?Clear drainage from the eyes. ?Swollen eyelids. ?Sensitivity to light. DIAGNOSIS Your health care provider can diagnose this condition from your symptoms and medical history. The health care provider will also do a physical exam. If you have drainage from your eyes, it may be tested to rule out other causes of conjunctivitis. Your health care provider may also use a medical instrument that uses magnified light to examine the eyes (slit lamp). TREATMENT Treatment for this condition involves carefully flushing the chemical out of your eye. You may alsoget antiallergy medicines or eye drops to use at home. HOME CARE INSTRUCTIONS ?Take or apply medicines only as directed by your health care provider. ?Do not touch or rub your eyes. ?Do not wear contact lenses until the inflammation is gone. Wear glasses instead. ?Do not wear eye makeup until the inflammation is gone. ?Apply a cool, clean washcloth to your eye for 10???20 minutes, 3???4 times a day. ?Avoid exposure to the chemical or environment that caused the irritation. Wear eye protection as necessary. SEEK MEDICAL CARE IF: ?Your symptoms get worse. ?You have pus draining from your eye. ?You have new symptoms. ?You have a fever. ?You have a change in vision. ?You have increasing pain. This information is not intended to replace advice given to you by your health care provider. Make sure you discuss any questions you have with your health care provider. Document Released: 07/31/2006 Document Revised: 11/11/2015 Document Reviewed: 08/02/2015 [employer] Interactive Patient Education ??2016 [employer] How to Use Eye Drops and Eye Ointments How to Use Eye Drops and Eye Ointments HOW TO APPLY EYE DROPS Follow these steps when applying eye drops: 1.?Wash your hands. 2.?Tilt your head back. 3.?Put a finger under your eye and use it to gently pull your lower lid downward. Keep that finger in place. 4.?Using your other hand, hold the dropper between your thumb and index finger. 5.?Position the dropper just over the edge of the lower lid. Hold it as close to your eye as youcan without touching the dropper to your eye. 6.?Steady your hand. One way to do this is to lean your index finger against your brow. 7.?Look up. 8.?Slowly and gently squeeze one drop of medicine into your eye. 9.?Close your eye. 10.?Place a finger between your lower eyelid and your nose. Press gently for 2 minutes. This increases the amount of time that the medicine is exposed to the eye. It also reduces side effects thatcan develop if the drop gets into the bloodstream through the nose. HOW TO APPLY EYE OINTMENTS Follow these steps when applying eye ointments: 1.?Wash your hands. 2.?Put a finger under your eye and use it to gently pull your lower lid downward. Keep that finger in place. 3.?Using your other hand, place the tip of the tube between your thumb and index finger with theremaining fingers braced against your cheek or nose. 4.?Hold the tube just over the edge of your lower lid without touching the tube to your lid or eyeball. 5.?Look up. 6.?Line the inner part of your lower lid with ointment. 7.?Gently pull up on your upper lid and look down. This will force the ointment to spread over the surface of the eye. 8.?Release the upper lid. 9.?If you can, close your eyes for 1???2 minutes. Do not rub your eyes. If you applied the ointment correctly, your vision will be blurry for a few minutes. This is normal. ADDITIONAL INFORMATION ?Make sure to use the eye drops or ointment as told by your health care provider. ?If you have been told to use both eye drops and an eye ointment, apply the eye drops first, then wait 3???4 minutes before you apply the ointment. ?Try not to touch the tip of the dropper or tube to your eye. A dropper or tube that has touched the eye can become contaminated. This information is not intended to replace advice given to you by your health care provider. Make sure you discuss any questions you have with your health care provider. Document Released: 01/27/2002 Document Revised: 03/06/2016 Document Reviewed: 10/17/2015 [employer] Interactive Patient Education ??2016 [employer]. Follow Up Care 04/04/2019 03:01:59 With:[facility] Address: [facility] [place], [place] [id number] Business (1) When:Call for next available appointment Comments:Call for next available appointment to be seen this week or see your own eye doctor. REturn if worse. take tylenol for avery if needed. With:Follow up with primary care provider Address:Unknown When:Call for next available appointment
--- OUTSIDE RECORDS SUMMARY | 2023-09-12 19:33 | XMS_ITS | Referral Summary ---
Author Name Unknown Organization [facility] Address [address] [place] [address] Encounter Date(s): 12/20/18 - 12/20/18 [facility] [address] [place] [address]- Encounter Diagnosis SI (sacroiliac) joint dysfunction(Discharge Diagnosis) - 12/20/18 Discharge Disposition: Home Attending Physician: NGUYEN NUÑEZ, LENCHO SARMIENTO Vital Signs Most recent to oldest [Reference Range]: 1 2 Temperature Temporal [36.3-38 DegC] 35.9 DegC *LOW* (12/20/18 4:38 PM) Heart Rate [50-100 bpm] 70 bpm (12/20/18 7:47 PM) 78 bpm (12/20/18 4:38 PM) Respiratory Rate [11-21 br/min] 18 br/mi n (12/20/18 7:47 PM) 18 br/min (12/20/18 4:38 PM) Oxygen Saturation [89-101 %] 96 % (12/20/18 7:47 PM) 96 % (12/20/18 4:38 PM) Oxygen Delivery Room air (12/20/18 4:55 PM) Vital Signs Note Report to ZAK Vuong (12/20/18 7:10 PM) Blood Pressure 122/60mmHg (12/20/18 7:47 PM) 142/67mmHg (12/20/18 4:38 PM) Height 163 cm (12/20/18 4:55 PM) 163 cm (12/20/18 4:38 PM) CLINICALWEIGHT 56 kg (12/20/18 4:55 PM) 56 kg (12/20/18 4:38 PM) Dosing Weight Type Standing Scale (12/20/18 4:55 PM) Standing Scale (12/20/18 4:38 PM) Body Mass Index 21.08 kg/m2 (12/20/18 4:55 PM) 21.08 kg/m2 (12/20/18 4:38 PM) [place] Body Weight 55.09 kg (12/20/18 4:55 PM) 55.09 kg (12/20/18 4:38 PM) Height Obtained Measured (12/20/18 4:55 PM) Problem List Diagnosis Diagnosis Type Effective Dates Health Status Clinical Service Informant SI (sacroiliac) joint dysfunction Discharge Diagnosis 12/20/18 Non-Specified Allergies, Adverse Reactions, Alerts No Known Allergies Medications cyclobenzaprine 10 mg oral tablet 10 mg = 1 Tab(s), Oral, TID, PRN Spasm, # 30 Tab(s), Refill(s) 0, Pharmacy: [facility] [id number] Start Date: 12/20/18 Stop Date: 01/19/19 Status: Ordered IBU 600 mg oral tablet 600 mg = 1 Tab(s), Oral, Q8H, # 30 Tab(s), Refill(s) 0, Pharmacy: [facility] [id number] Start Date: 12/20/18 Stop Date: 01/19/19 Status: Ordered Social History Social History Type Response Smoking Status Never (less than 100 in lifetime) entered on: 12/20/18 Functional Status COGNITIVE 12/20/18 Level of Consciousness Alert, Awake, Appropriate for age Orientation Oriented x 4, Appropriate for age/developmental level Affect/Behavior Calm General Assessment Comment pain resolved , pt being discharged with spouse. Hospital Discharge Instructions Patient Education 12/20/2018 16:38:48 Back Exercises Back Exercises Back exercises help treat and prevent back injuries. The goal of back exercises is to increase the strength of your abdominal and back muscles and the flexibility of your back. These exercises shouldbe started when you no longer have back pain. Back exercises include: ?Pelvic Tilt. Lie on your back with your knees bent. Tilt your pelvis until the lower part ofyour back is against the floor. Hold this position 5 to 10 sec and repeat 5 to 10 times. ?Knee to Chest. Pull first 1 knee up against your chest and hold for 20 to 30 seconds, repeatthis with the other knee, and then both knees. This may be done with the other leg straight or bent, whichever feels better. ?Sit-Ups or Curl-Ups. Bend your knees 90 degrees. Start with tilting your pelvis, and do a partial, slow sit-up, lifting your trunk only 30 to 45 degrees off the floor. Take at least 2 to 3 seconds for each sit-up. Do not do sit-ups with your knees out straight. If partial sit-ups are difficult, simply do the above but with only tightening your abdominal muscles and holding it as directed. ?Hip-Lift. Lie on your back with your knees flexed 90 degrees. Push down with your feet and shoulders as you raise your hips a couple inches off the floor; hold for 10 seconds, repeat 5 to 10 times. ?Back arches. Lie on your stomach, propping yourself up on bent elbows. Slowly press on your hands, causing an arch in your low back. Repeat 3 to 5 times. Any initial stiffness and discomfort should lessen with repetition over time. ?Shoulder-Lifts. Lie face down with arms beside your body. Keep hips and torso pressed to floor as you slowly lift your head and shoulders off the floor. Do not overdo your exercises, especially in the beginning. Exercises may cause you some mild back discomfort which lasts for a few minutes; however, if the pain is more severe, or lasts for more than15 minutes, do not continue exercises until you see your caregiver. Improvement with exercise therapy for back problems is slow. See your caregivers for assistance with developing a proper back exercise program. This information is not intended to replace advice given to you by your health care provider. Make sure you discuss any questions you have with your health care provider. Document Released: 11/28/2005 Document Revised: 01/12/2013 Document Reviewed: 12/15/2015 [employer] Interactive Patient Education ??2016 [employer] Sacroiliac Joint Dysfunction Sacroiliac Joint Dysfunction Sacroiliac joint dysfunction is a condition that causes inflammation on one or both sides of the sacroiliac (SI) joint. The SI joint connects the lower part of the spine (sacrum) with the two upper portions of the pelvis (ilium). This condition causes deep aching or burning pain in the low back. Insome cases, the pain may also spread into one or both buttocks or hips or spread down the legs. CAUSES This condition may be caused by: ?. During , extra stress is put on the SI joints because the pelvis widens. ?Injury, such as: ?Car accidents. ?Sport-related injuries. ?Work-related injuries. ?Having one leg that is shorter than the other. ?Conditions that affect the joints, such as: ?Rheumatoid arthritis. ?Gout. ?Psoriatic arthritis. ?Joint infection (septic arthritis). Sometimes, the cause of SI joint dysfunction is not known. SYMPTOMS Symptoms of this condition include: ?Aching or burning pain in the lower back. The pain may also spread to other areas, such as: ?Buttocks. ?Groin. ?Thighs and legs. ?Muscle spasms in or around the painful areas. ?Increased pain when standing, walking, running, stair climbing, bending, or lifting. DIAGNOSIS Your health care provider will do a physical exam and take your medical history. During the exam, the health care provider may move one or both of your legs to different positions to check for pain. Various tests may be done to help verify the diagnosis, including: ?Imaging tests to look for other causes of pain. These may include: ?MRI. ?CT scan. ?Bone scan. ?Diagnostic injection. A numbing medicine is injected into the SI joint using a needle. If the pain is temporarily improved or stopped after the injection, this can indicate that SI joint dysfunction is the problem. TREATMENT Treatment may vary depending on the cause and severity of your condition. Treatment options may include: ?Applying ice or heat to the lower back area. This can help to reduce pain and muscle spasms. ?Medicines to relieve pain or inflammation or to relax the muscles. ?Wearing a back brace (sacroiliac brace) to help support the joint while your back is healing. ?Physical therapy to increase muscle strength around the joint and flexibility at the joint. This may also involve learning proper body positions and ways of moving to relieve stress on the joint. ?Direct manipulation of the SI joint. ?Injections of steroid medicine into the joint in order to reduce pain and swelling. ?Radiofrequency ablation to burn away nerves that are carrying pain messages from the joint. ?Use of a device that provides electrical stimulation in order to reduce pain at the joint. ?Surgery to put in screws and plates that limit or prevent joint motion. This is rare. HOME CARE INSTRUCTIONS ?Rest as needed. Limit your activities as directed by your health care provider. ?Take medicines only as directed by your health care provider. ?If directed, apply ice to the affected area: ?Put ice in a plastic bag. ?Place a towel between your skin and the bag. ?Leave the ice on for 20 minutes, 2???3 times per day. ?Use a heating pad or a moist heat pack as directed by your health care provider. ?Exercise as directed by your health care provider or physical therapist. ?Keep all follow-up visits as directed by your health care provider. This is important. SEEK MEDICAL CARE IF: ?Your pain is not controlled with medicine. ?You have a fever. ?You have increasingly severe pain. SEEK IMMEDIATE MEDICAL CARE IF: ?You have weakness, numbness, or tingling in your legs or feet. ?You lose control of your bladder or bowel. This information is not intended to replace advice given to you by your health care provider. Make sure you discuss any questions you have with your health care provider. Document Released: 01/17/2010 Document Revised: 03/06/2016 Document Reviewed: 06/28/2015 [employer] Interactive Patient Education ??2016 [employer] Follow Up Care 12/20/2018 16:38:48 With:*Return to Emergency Department Address:Unknown When:As needed Comments:Return immediately if symptoms change or worsen With:*Follow up with primary care provider Address:Unknown When:a few days, as needed Comments:For ED follow-up and continuation of care
--- OUTSIDE RECORDS SUMMARY | 2023-09-12 19:33 | XMS_ITS | Referral Summary ---
Author Name Unknown Organization [facility] Address [address] [place] [address] Encounter Date(s): 06/25/20 - 06/25/20 [facility] [address] [place] [address]- Encounter Diagnosis Chest pain(Discharge Diagnosis) - 06/25/20 Discharge Disposition: Home Attending Physician: BILLIE DOWNEY MD Vital Signs Most recent to oldest [Reference Range]: 1 2 3 Temperature Temporal [36.3-38 DegC] 36.1 DegC *LOW* (06/25/20 6:56 AM) Heart Rate [50-100 bpm] 72 bpm (06/25/20 12:20 PM) 64 bpm (06/25/20 11:10 AM) 64 bpm (06/25/20 8:00 AM) Respiratory Rate [11-21 br/min] 16 br/min (06/25/20 12:20 PM) 16 br/min (06/25/20 11:10 AM) 16 br/min (06/25/20 8:00 AM) Oxygen Saturation [89-101 %] 94 % (06/25/20 12:20 PM) 92 % (06/25/20 11:10 AM) 90 % (06/25/20 8:00 AM) Oxygen Delivery Room air (06/25/20 12:20 PM) Room air (06/25/20 11:10 AM) Room air (06/25/20 8:00 AM) Vital Signs Note breakfast ordered fo r this patient (06/25/20 11:11 AM) Blood Pressure 155/70mmHg (06/25/20 12:20 PM) 159/68mmHg (06/25/20 8:00 AM) 177/81mmHg (06/25/20 6:56 AM) Height 160 cm (06/25/20 8:00 AM) 160 cm (06/25/20 6:56 AM) CLINICALWEIGHT 57 kg (06/25/20 8:00 AM) 57 kg (06/25/20 6:56 AM) Dosing Weight Type Standing Scale (06/25/20 8:00 AM) Bed Scale (06/25/20 6:56 AM) Body Mass Index 22.27 kg/m2 (06/25/20 8:00 AM) 22.27 kg/m2 (06/25/20 6:56 AM) [place] Body Weight 52.38 kg (06/25/20 8:00 AM) 52.38 kg (06/25/20 6:56 AM) Height Obtained Patient stated (06/25/20 8:00 AM) Estimated (06/25/20 6:56 AM) Problem List Diagnosis Diagnosis Type Effective Dates Health Status Clini oneyda Service Informant Chest pain Discharge Diagnosis 06/25/20 Non-Specified Allergies, Adverse Reactions, Alerts No Known Allergies Medications No Known Medications Results Most recent to oldest [Reference Range]: 1 2 HGB [12.0-16.0 g/dL] 14.2 g/dL (06/25/20 7:00 AM) HCT [36.0-48.0 %] 42.4 % (06/25/20 7:00 AM) PLT [139-411 x10^3/uL] 257 x10^3/uL (06/25/20 7:00 AM) Baso Auto [0.0-2.0 %] 1.3 % (06/25/20 7:00 AM) Anion Gap [6-16 mmol/L] 11 mmol/L (06/25/20 9:21 AM) 21 mmol/L *HI* (06/25/20 7:00 AM) Sodium [136-145 mmol/L] 139 mmol/L (06/25/20 9:21 AM) 144 mmol/L (06/25/20 7:00 AM) Potassium [3.4-4.5 mmol/L] 3.9 mmol/L (06/25/20 9:21 AM) 4.1 mmol/L (06/25/20 7:00 AM) Glucose [65-105 mg/dL] 82 mg/dL (06/25/20:21 AM) 93 mg/dL (06/25/20 7:00 AM) eGFR [>=60 mL/min/1.73m^2] >60 mL/min/1. 73m^2 1 (06/25/20:21 AM) >60 mL/min/1.73m^2 2 (06/25/20 7:00 AM) Calcium [8.4-10.2 mg/dL] 8.2 mg/dL *LOW* (06/25/20: AM) 9.1 mg/dL (06/25/20 7:00 AM) Chloride [96-107 mmol/L] 106 mmol/L (06/25/20: AM) 99 mmol/L (06/25/20 7:00 AM) eCrCl 61 mL/min 3 *NA* (06/25/20: AM) 56 mL/min 4 *NA* (06/25/20 7:00 AM) Troponin T [0.00-0.09 ng/mL] 0.01 ng/mL (06/25/20: AM) 0.01 ng/mL (06/25/20 7:00 AM) BNP pro [0-450 pg/mL] 210 pg/mL (06/25/20 7:00 AM) Albumin [3.5-5.0 g/dL] 3.8 g/dL (06/25/20 7:00 AM) Alk Phos [35-104 unit/L] 53 unit/L (06/25/20 7:00 AM) ALT [0-33 unit/L] 16 unit/L (06/25/20 7:00 AM) AST [0-32 unit/L] 26 unit/L (06/25/20 7:00 AM) Bili Total [0.20-1.30 mg/dL] 1.00 mg/dL (06/25/20 7:00 AM) BUN [7-17 mg/dL] 16 mg/dL (06/25/20:21 AM) 18 mg/dL *HI* (06/25/20 7:00 AM) CO2 [22-30 mmol/L] 22 mmol/L (06/25/20: AM) 24 mmol/L (06/25/20 7:00 AM) Creatinine [0.70-1.20 mg/dL] .60 mg/dL *LOW* (06/25/20 9:21 AM) .66 mg/dL *LOW* (06/25/20 7:00 AM) Eos Auto [0.0-6.0 %] 3.0 % (06/25/20 7:00 AM) Ethanol [0-10 mg/dL] <10 mg/dL (06/25/20 7:00 AM) INR [1.00-3.00] 0.95 *LOW* (06/25/20 7:00 AM) Lymph Auto [24.0-44.0 %] 31.9 % (06/25/20 7:00 AM) MCH [27.4-33.4 pg] 30.4 pg (06/25/20 7:00 AM) MCHC [32.0-36.0 g/dL] 33.4 g/dL (06/25/20 7:00 AM) MCV [79.9-97.7 fL] 91.2 fL (06/25/20 7:00 AM) [place] Auto [1.0-7.0 %] 6.5 % (06/25/20 7:00 AM) MPV [7.9-11.9 fL] 6.9 fL *LOW* (06/25/20 7:00 AM) Neutro Auto [36.0-66.0 %] 57.3 % (06/25/20 7:00 AM) PT [9.6-13.2 second(s)] 10.7 second(s) (06/25/20 7:00 AM) PTT [28.6-37.6 second(s)] 33.2 second(s) (06/25/20 7:00 AM) RBC [4.20-5.40 x10^6/uL] 4.65 x10^6/uL (06/25/20 7:00 AM) RDW [11.5-15.5 %] 14.2 % (06/25/20 7:00 AM) Total Protein [6.3-8.2 g/dL] 6.8 g/dL (06/25/20 7:00 AM) WBC [4.0-11.0 x10^3/uL] 8.5 x10^3/uL (06/25/20 7:00 AM) Lactic Acid [0.5-2.2 mmol/L] 0.8 mmol/L (06/25/20 7:00 AM) Abs Neutro Auto [1.8-8.0 x10^3/mm^3] 4.9 x10^3/mm^3 (06/25/20 7:00 AM) Abs Lymph Auto [1.0-4.8 x10^3/mm^3] 2.7 x10^3/mm^3 (06/25/20 7:00 AM) Abs [place] Auto [0.0-0.4 x10^3/mm^3] 0.6 x 10^3/mm^3 *HI* (06/25/20 7:00 AM) Abs Eos Auto [0.0-0.5 x10^3/mm^3] 0.3 x1 0^3/mm^3 (06/25/20 7:00 AM) Abs Baso Auto [0.0-0.2 x10^3/mm^3] 0.1 x 10^3/mm^3 (06/25/20 7:00 AM) 1Result Comment: If the patient is , the result should be multiplied by 1.210. Estimated GFR values of 60 mL/min/1.73 m(sqr) and below have more clinical implications for classification of kidney function than values above this level. The equation has been most extensively evaluated in people with chronic kidney disease and reduced GFR and is less accurate for persons with normal or mildly impaired kidney function. The eGFR equation has not been validated for use outside the age range of 18-70, for women, patients with serious comorbid conditions, or persons with extremes of body size, muscle mass, or nutritional status. Application of the equation to these patient groups may lead to errors in GFR estimation. 2Result Comment: If the patient is , the result should be multiplied by 1.210. Estimated GFR values of 60 mL/min/1.73 m(sqr) and below have more clinical implications for classification of kidney function than values above this level. The equation has been most extensively evaluated in people with chronic kidney disease and reduced GFR and is less accurate for persons with normal or mildly impaired kidney function. The eGFR equation has not been validated for use outside the age range of 18-70, for women, patients with serious comorbid conditions, or persons with extremes of body size, muscle mass, or nutritional status. Application of the equation to these patient groups may lead to errors in GFR estimation. 3Result Comment: Estimated Creatinine Clearance calculated with Cockroft-Gault formula = 0.85*(140-Age)* Charlotte BW/72*SrCr. Calculated by Discern Expert at that time using: [place] BW = 52.70 kg, SrCr = 0.6 mg/dL. The Cockcroft-Gault equation estimates creatinine clearance (eCrCl). Pharmacokinetics studies over the years have used this equation to determine level of kidney function for dosage adjustment in the FDA approved labeling of drugs. As a result, it has become a standard for drug dosing. The MDRD study equation estimates glomerular filtration rate (eGFR). Studies have found that this equation is a more accurate estimate of the glomerular filtration rate than the Cockcroft-Gault equation. As a result, it has become a standard for staging chronic kidney disease. The National Kidney Disease Education Program recommends using either eCrCl or eGFR for drug dosing. However, published studies report that drug dosages determined by the two equations do not agree in 10-40% of cases. For times when the two equations do not agree, choose the dosing regimen that optimizes the risk:benefit ratio given the patient's specific clinical scenario. 4Result Comment: Estimated Creatinine Clearance calculated with Cockroft-Gault formula = 0.85*(140-Age)* Charlotte BW/72*SrCr. Calculated by Discern Expert at that time using: [place] BW = 52.70 kg, SrCr = 0.66 mg/dL. The Cockcroft-Gault equation estimates creatinine clearance (eCrCl). Pharmacokinetics studies over the years have used this equation to determine level of kidney function for dosage adjustm ent in the FDA approved labeling of drugs. As a result, it has become a standard for drug dosing. The MDRD study equation estimates glomerular filtration rate (eGFR). Studies have found that this equation is a more accurate estimate of the glomerular filtration rate than the Cockcroft-Gault equation. As a result, it has become a standard for staging chronic kidney disease. The National Kidney Disease Education Program recommends using either eCrCl or eGFR for drug dosing. However, published studies report that drug dosages determined by the two equations do not agree in 10-40% of cases. For times when the two equations do not agree, choose the dosing regimen that optimizes the risk:benefit ratio given the patient's specific clinical scenario. Social History Social History Type Response Smoking Status Never (less than 100 in lifetime) entered on: 06/25/20 Functional Status COGNITIVE 06/25/20 Level of Consciousness Alert, Awake, Appropriate for age Affect/Behavior Calm Hospital Discharge Instructions Follow Up Care 06/25/2020 06:48:23 With:JOEY IDAL Address: [address] [place] [phone] BUSINESS (1) When:Call for next available appointment Comments:Please call Saturday morning for follow up on Saturday or Saturday. If you have return of Chest pain, nausea, vomiting, shortnes of breath or sweating, please immediately return to the ER.
--- OUTSIDE RECORDS SUMMARY | 2023-09-12 19:33 | XMS_ITS | Referral Summary ---
Author Name Unknown Organization [facility] Address [address] [place] [address] Encounter Date(s): 01/11/18 - 01/11/18 [facility] [address] [place] [address]- Encounter Diagnosis Abdominal pain(Discharge Diagnosis) - 01/11/18 Gastroenteritis(Discharge Diagnosis) - 01/11/18 Discharge Disposition: Home Attending Physician: MARIA R FORBES DO Vital Signs Most recent to oldest [Reference Range]: 1 2 Temperature Temporal [36.3-37.8 DegC] 36 .6 DegC (01/11/18 11:24 AM) Heart Rate [50-100 bpm] 69 bpm (01/11/18 11:24 AM) Respiratory Rate [11-21 br/min] 14 br/mi n (01/11/18 11:24 AM) Oxygen Saturation [89-101 %] 93 % (01/11/18 11:24 AM) Blood Pressure 129/76mmHg (01/11/18 11:24 AM) Height 167 cm (01/11/18 11:38 AM) 167 cm (01/11/18 11:24 AM) CLINICALWEIGHT 58.4 kg (01/11/18 11:38 AM) 58.4 kg (01/11/18 11:24 AM) Dosing Weight Type Standing Scale (01/11/18 11:38 AM) Standing Scale (01/11/18 11:24 AM) Body Mass Index 20.94 kg/m2 (01/11/18 11:38 AM) 20.94 kg/m2 (01/11/18 11:24 AM) [place] Body Weight 58.73 kg (01/11/18 11:38 AM) 58.73 kg (01/11/18 11:24 AM) Height Obtained Patient stated (01/11/18 11:38 AM) Problem List Diagnosis Diagnosis Type Effective Dates Health Status inical Service Informant Gastroenteritis Discharge Diagnosis 01/11/18 Non-Specified Abdominal pain Discharge Diagnosis 01/11/18 Non-Specified Allergies, Adverse Reactions, Alerts No Known Allergies Medications No Known Medications Results Hematology Most recent to oldest [Reference Range]: 1 HGB [12.0-16.0 g/dL] 14.8 g/dL (01/11/18 11:58 AM) HCT [36.0-48.0 %] 44.0 % (01/11/18 11:58 AM) WBC [4.0-11.0 x10^3/uL] 4.0 x10^3/uL (01/11/18 11:58 AM) PLT [139-411 x10^3/uL] 224 x10^3/uL (01/11/18 11:58 AM) RBC [4.20-5.40 x10^6/uL] 4.85 x10^6/uL (01/11/18 11:58 AM) MCV [79.9-97.7 fL] 90.7 fL (01/11/18 11:58 AM) MCH [27.4-33.4 pg] 30.5 pg (01/11/18 11:58 AM) MCHC [32.0-36.0 g/dL] 33.6 g/dL (01/11/18 11:58 AM) MPV [7.9-11.9 fL] 7.0 fL *LOW* (01/11/18 11:58 AM) RDW [11.5-15.5 %] 13.4 % (01/11/18 11:58 AM) Lymph Auto [24.0-44.0 %] 33.5 % (01/11/18 11:58 AM) Neutro Auto [36.0-66.0 %] 54.7 % (01/11/18 11:58 AM) [place] Auto [1.0-7.0 %] 8.3 % *HI* (01/11/18 11:58 AM) Eos Auto [0.0-6.0 %] 2.8 % (01/11/18 11:58 AM) Baso Auto [0.0-2.0 %] 0.7 % (01/11/18 11:58 AM) Abs Neutro Auto [1.8-8.0 x10^3/mm^3] 2.2 x10^3/mm^3 (01/11/18 11:58 AM) Abs Lymph Auto [1.0-4.8 x10^3/mm^3] 1.3 x10^3/mm^3 (01/11/18 11:58 AM) Abs [place]oval Auto [0.0-0.4 x10^3/mm^3] 0.3 x 10^3/mm^3 (01/11/18 11:58 AM) Abs Eos Auto [0.0-0.5 x10^3/mm^3] 0.1 x1 0^3/mm^3 (01/11/18 11:58 AM) Abs Baso Auto [0.0-0.2 x10^3/mm^3] 0.0 x 10^3/mm^3 (01/11/18 11:58 AM) Chemistry Most recent to oldest [Reference Range]: 1 Sodium [136-145 mmol/L] 141 mmol/L (01/11/18 11:58 AM) Potassium [3.4-4.5 mmol/L] 4.0 mmol/L (01/11/18 11:58 AM) Chloride [96-107 mmol/L] 101 mmol/L (01/11/18 11:58 AM) CO2 [22-30 mmol/L] 28 mmol/L (01/11/18 11:58 AM) Anion Gap [10-20 mmol/L] 12 mmol/L (01/11/18 11:58 AM) Calcium [8.4-10.2 mg/dL] 9.1 mg/dL (01/11/18 11:58 AM) Glucose [65-105 mg/dL] 83 mg/dL (01/11/18 11:58 AM) BUN [7-17 mg/dL] 16 mg/dL (01/11/18 11:58 AM) Creatinine [0.70-1.20 mg/dL] .64 mg/dL *LOW* (01/11/18 11:58 AM) eGFR [>=60 mL/min/1.73m^2] >60 mL/min/1. 73m^2 (01/11/18 11:58 AM) Bili Total [0.2-1.3 mg/dL] 0.7 mg/dL (01/11/18 11:58 AM) Alk Phos [35-104 unit/L] 44 unit/L (01/11/18 11:58 AM) Albumin [3.5-5.0 g/dL] 4.1 g/dL (01/11/18 11:58 AM) Total Protein [6.3-8.2 g/dL] 6.5 g/dL (01/11/18 11:58 AM) ALT [0-33 unit/L] 24 unit/L (01/11/18 11:58 AM) AST [0-32 unit/L] 31 unit/L (01/11/18:58 AM) Lipase [13-60 unit/L] 27 unit/L (01/11/18 11:58 AM) Lactic Acid [0.5-2.2 mmol/L] 0.9 mmol/L (01/11/18 11:58 AM) Urinalysis Most recent to oldest [Reference Range]: 1 UA Color [Yellow] Yellow (01/11/18 12:27 PM) UA Clarity [Clear] Hazy *NA* (01/11/18 12:27 PM) UA pH [5.0-8.0 pH] 5.0 pH (01/11/18 12:27 PM) UA Spec Grav [1.000-1.030] 1.014 (01/11/18 12:27 PM) UA Protein [Negative mg/dL] Negative mg/ dL (01/11/18 12:27 PM) UA Glucose [Negative mg/dL] Negative mg/ dL (01/11/18 12:27 PM) UA Ketones [Negative mg/dL] 5 mg/dL *ABN* (01/11/18 12:27 PM) UA Bili [Negative] Negative (01/11/18 12:27 PM) UA Blood [Negative] Negative (01/11/18 12:27 PM) UA Nitrite [Negative] Negative (01/11/18 12:27 PM) UA Leuk Est [Negative] Negative (01/11/18 12:27 PM) UA Urobilinogen [Negative] <2.0 (01/11/18 12:27 PM) Urine Microscopic No *NA* (01/11/18 12:27 PM) Social History Social History Type Response Smoking Status Never smoker entered on: 01/11/18 Functional Status COGNITIVE 01/11/18 Level of Consciousness Alert, Awake Affect/Behavior Calm Hospital Discharge Instructions Patient Education 01/11/2018 11:11:37 Abdominal Pain, Adult Abdominal Pain, Adult Many things can cause abdominal pain. Usually, abdominal pain is not caused by a disease and will improve without treatment. It can often be observed and treated at home. Your health care provider will do a physical exam and possibly order blood tests and X-rays to help determine the seriousness ofyour pain. However, in many cases, more time must pass before a clear cause of the pain can be found. Before that point, your health care provider may not know if you need more testing or further treatment. HOME CARE INSTRUCTIONS Monitor your abdominal pain for any changes. The following actions may help to alleviate any discomfort you are experiencing: ?Only take [id number] or prescription medicines as directed by your health care provider. ?Do not take laxatives unless directed to do so by your health care provider. ?Try a clear liquid diet (broth, tea, or water) as directed by your health care provider. Slowly move to a bland diet as tolerated. SEEK MEDICAL CARE IF: ?You have unexplained abdominal pain. ?You have abdominal pain associated with nausea or diarrhea. ?You have pain when you urinate or have a bowel movement. ?You experience abdominal pain that wakes you in the night. ?You have abdominal pain that is worsened or improved by eating food. ?You have abdominal pain that is worsened with eating fatty foods. ?You have a fever. SEEK IMMEDIATE MEDICAL CARE IF: ?Your pain does not go away within 2 hours. ?You keep throwing up (vomiting). ?Your pain is felt only in portions of the abdomen, such as the right side or the left lower portion of the abdomen. ?You pass bloody or black tarry stools. MAKE SURE YOU: ?Understand these instructions. ?Will watch your condition. ?Will get help right away if you are not doing well or get worse. ?? This information is not intended to replace advice given to you by your health care provider. Make sure you discuss any questions you have with your health care provider. Document Released: 07/31/2006 Document Revised: 11/11/2015 Document Reviewed: 06/30/2014 [employer] Interactive Patient Education ??2016 [employer] Follow Up Care 01/11/2018 11:11:37 With:Return to Emergency Department Address:Unknown When:As needed Comments:Return to emergency Department if worsening or persistent symptoms.
--- OUTSIDE RECORDS SUMMARY | 2023-09-12 19:33 | XMS_ITS | Referral Summary ---
Author Name Unknown Organization [facility] Address [address] [place] [address] Encounter Date(s): 04/18/22 - 04/18/22 [facility] [address] [place], [place] [address] Encounter Diagnosis Sore throat(Discharge Diagnosis) - 04/18/22 Discharge Disposition: Home Attending Physician: LUCERO NUÑEZ, IV Vital Signs Most recent to oldest [Reference Range]: 1 2 3 Temperature Temporal [36.3-38 DegC] 36.1 DegC *LOW* (04/18/22 10:02 AM) Heart Rate [50-100 bpm] 71 bpm (04/18/22 4:00 PM) 58 bpm (04/18/22 2:00 PM) 57 bpm (04/18/22 1:30 PM) Respiratory Rate [11-21 br/min] 16 br/min (04/18/22 4:00 PM) 14 br/min (04/18/22 2:00 PM) 16 br/min (04/18/22 1:30 PM) Oxygen Saturation [89-101 %] 97 % (04/18/22 4:00 PM) 95 % (04/18/22 2:00 PM) 95 % (04/18/22 1:30 PM) Oxygen Delivery Room air (04/18/22 4:00 PM) Room air (04/18/22 11:27 AM) Temp Source Temporal (04/18/22 10:02 AM) Blood Pressure 140/68mmHg (04/18/22 4:00 PM) 142/69mmHg (04/18/22 2:00 PM) 141/69mmHg (04/18/22 1:30 PM) Height 157 cm (04/18/22 11:27 AM) 157 cm (04/18/22 10:02 AM) CLINICALWEIGHT 52.9 kg (04/18/22 11:27 AM) 52.9 kg (04/18/22 10:02 AM) Dosing Weight Type Standing Scale (04/18/22 11:27 AM) Standing Scale (04/18/22 10:02 AM) Body Mass Index 21.46 kg/m2 (04/18/22 11:27 AM) 21.46 kg/m2 (04/18/22 10:02 AM) [place] Body Weight 49.66 kg (04/18/22 11:27 AM) 49.66 kg (04/18/22 10:02 AM) Height Obtained Patient stated (04/18/22 11: AM) Patient stated (04/18/22 10:02 AM) Problem List Diagnosis Diagnosis Type Effective Dates Health Status Clini oneyda Service Informant Sore throat Discharge Diagnosis 04/18/22 Allergies, Adverse Reactions, Alerts No Known Allergies Results Most recent to oldest [Reference Range]: 1 HGB [12.0-16.0 g/dL] 14.1 g/dL (04/18/22 1:38 PM) HCT [36.0-48.0 %] 39.9 % (04/18/22 1:38 PM) PLT [139-411 x10^3/uL] 215 x10^3/uL (04/18/22 1:38 PM) Baso Auto [0.0-2.0 %] 0.7 % (04/18/22 1:38 PM) Anion Gap [6-16 mmol/L] 9 mmol/L (04/18/22 1:38 PM) Sodium [136-145 mmol/L] 143 mmol/L (04/18/22 1:38 PM) Potassium [3.4-4.5 mmol/L] 4.0 mmol/L (04/18/22 1:38 PM) Glucose [74-106 mg/dL] 101 mg/dL (04/18/22 1:38 PM) eGFR [>=60 mL/min/1.73m^2] >60 mL/min/1. 73m^2 1 (04/18/22 1:38 PM) Calcium [8.7-10.4 mg/dL] 10.7 mg/dL *HI* (04/18/22 1:38 PM) Chloride [98-107 mmol/L] 105 mmol/L (04/18/22 1:38 PM) eCrCl 54 mL/min 2 *NA* (04/18/22 1:38 PM) Group A Strep DNA [Negative] Negative (04/18/22 10:11 AM) BUN [9-23 mg/dL] 21 mg/dL (04/18/22 1:38 PM) CO2 [22-30 mmol/L] 29 mmol/L (04/18/22 1:38 PM) Creatinine [0.5-1.0 mg/dL] 0.6 mg/dL (04/18/22 1:38 PM) Eos Auto [0.0-6.0 %] 0.1 % (04/18/22 1:38 PM) Lymph Auto [24.0-44.0 %] 26.3 % (04/18/22 1:38 PM) MCH [27.4-33.4 pg] 31.3 pg (04/18/22 1:38 PM) MCHC [32.0-36.0 g/dL] 35.3 g/dL (04/18/22 1:38 PM) MCV [79.9-97.7 fL] 88.7 fL (04/18/22 1:38 PM) Smith Auto [1.0-7.0 %] 3.6 % (04/18/22 1:38 PM) MPV [7.9-11.9 fL] 7.5 fL *LOW* (04/18/22 1:38 PM) Neutro Auto [36.0-66.0 %] 69.3 % *HI* (04/18/22 1:38 PM) RBC [4.20-5.40 x10^6/uL] 4.50 x10^6/uL (04/18/22 1:38 PM) RDW [11.5-15.5 %] 13.3 % (04/18/22 1:38 PM) WBC [4.0-11.0 x10^3/uL] 6.5 x10^3/uL (04/18/22 1:38 PM) Abs Neutro Auto [1.8-8.0 x10^3/mm^3] 4.5 x10^3/mm^3 (04/18/22 1:38 PM) Abs Lymph Auto [1.0-4.8 x10^3/mm^3] 1.7 x10^3/mm^3 (04/18/22 1:38 PM) Abs Smith Auto [0.0-0.4 x10^3/mm^3] 0.2 x 10^3/mm^3 (04/18/22 1:38 PM) Abs Eos Auto [0.0-0.5 x10^3/mm^3] 0.0 x1 0^3/mm^3 (04/18/22 1:38 PM) Abs Baso Auto [0.0-0.2 x10^3/mm^3] 0.0 x 10^3/mm^3 (04/18/22 1:38 PM) 1Result Comment: If the patient is , [...] to errors in GFR estimation. 2Result Comment: Estimated Creatinine Clearance calculated with Cockroft-Gault formula = 0.85*(140-Age)* [place] BW/72*SrCr. Calculated by Discern Expert at that time using: [place] BW = 50.00 kg, SrCr = 0.62 mg/dL. The Cockcroft-Gault equation estimates creatinine clearance [...] ratio given the patient's specific clinical scenario. Calculation performed via rule [id number] Immunizations Given and Recorded Vaccine Date Status Refusal Reason influenza virus vaccine, inactivated 10/10/21 Yan rded SARS-CoV-2 (COVID-19) mRNA-1273 vaccine 09/12/21 R ecorded SARS-CoV-2 (COVID-19) mRNA-1273 vaccine 01/09/21 R ecorded SARS-CoV-2 (COVID-19) mRNA-1273 vaccine 12/12/20 R ecorded Social History Social History Type Response Smoking Status Never entered on: 04/18/22 Functional Status COGNITIVE 04/18/22 Level of Consciousness Alert, Awake, Follows Commands Affect/Behavior Cooperative 04/18/22 Orientation Oriented x 4 Hospital Discharge Instructions Patient Education 04/18/2022 09:43:39 Sore Throat Sore Throat: Care Instructions Overview Infection by bacteria or a virus causes most sore throats. Cigarette smoke, dry air, air pollution,allergies, and yelling can also cause a sore throat. Sore throats can be painful and annoying. Fortunately, most sore throats go away on their own. If you have a bacterial infection, your doctor may prescribe antibiotics. Follow-up care is a naranjo part of your treatment and safety. Be sure to make and go to all appointments, and call your doctor if you are having problems. It's also a good idea to know your test resultsand keep a list of the medicines you take. How can you care for yourself at home? If your doctor prescribed antibiotics, take them as directed. Do not stop taking them just because you feel better. You need to take the full course of antibiotics. ??? Gargle with warm salt water several times a day to help reduce swelling and relieve pain. Mix 1/2 teaspoon of salt in 1 cup of warm water. ??? Take an srvx-zlr-bnlhzsl pain medicine, such as acetaminophen (Tylenol), ibuprofen (Advil, Motrin), or naproxen (Aleve). Read and follow all instructions on the label. ??? Be careful when taking aqfm-wcf-iogbufs cold or flu medicines and Tylenol at the same time. Many of these medicines have acetaminophen, which is Tylenol. Read the labels to make sure that you arenot taking more than the recommended dose. Too much acetaminophen (Tylenol) can be harmful. ??? Drink plenty of fluids. Fluids may help soothe an irritated throat. Hot fluids, such as tea or soup, may help decrease throat pain. ??? Use xmjz-uxh-bkuzxdi throat lozenges to soothe pain. Regular cough drops or hard candy may alsohelp. These should not be given to young children because of the risk of choking. ??? Do not smoke or allow others to smoke around you. If you need help quitting, talk to your doctor about stop-smoking programs and medicines. These can increase your chances of quitting for good. ??? Use a vaporizer or humidifier to add moisture to your bedroom. Follow the directions for cleaning the machine. When should you call for help? Call your doctor now or seek immediate medical care if: ??? You have trouble breathing. ??? Your sore throat gets much worse on one side. ??? You have new or worse trouble swallowing. ??? You have a new or higher fever. Watch closely for changes in your health, and be sure to contact your doctor if you do not get better as expected. Where can you learn more? Go to https://www.[employer].net/patientEd Enter U420 in the search box to learn more about Sore Throat: Care Instructions. Current as of: July 12, 2021?Content Version: 13.2 ?? [employer]. Care instructions adapted under license by your healthcare professional. If you have questions about a medical condition or this instruction, always ask your healthcare professional. [employer] disclaims any warranty or liability for your use of this information. Follow Up Care 04/18/2022 09:43:39 With:Emergency Department Address:Unknown When:As needed Comments:You have been seen for sore throat. CT imaging does not reveal any acute abscess or fluid collections. Follow-up with your primary care provider. Do not hesitate to return for any new or worsening symptoms including, not limited to worsening pain, inability keep fluids down, persistent fevers.
--- OUTSIDE RECORDS SUMMARY | 2023-09-12 19:33 | XMS_ITS | Continuity of Care Document ---
Author Name Unknown Organization [facility] Address [address] [place] [id number] Care Team Providers Care Director Hospice Operations Name Role Phone Lilibeth Gary Primary Care Physician Encounter [facility] [id number] Date(s): 06/06/21 - 09/09/22 [facility] [address] [place], [place] [address] Discharge Disposition: Other Attending Physician: Ranjit Zapata MD Admitting Physician: Ranjit Zapata MD Allergies, Adverse Reactions, Alerts Substance Reaction Severity Status acetaminophen Skin rash Active amoxicillin 1 Diarrhea Active Augmentin Diarrhea Active 1from augmentin Medications Aricept Oral, Once a day (at bedtime), 0 Refill(s) Start Date: 06/06/21 Status: Ordered candesartan Oral, Daily, 0 Refill(s) Start Date: 06/06/21 Status: Ordered Cytomel Oral, Daily, 0 Refill(s) Start Date: 06/06/21 Status: Ordered Fish Oil oral capsule 1 cap(s), Oral, Daily, # 100 cap(s), 0 Refill(s) Start Date: 05/04/19 Status: Ordered ICaps AREDS Oral, BID, 0 Refill(s) Start Date: 05/04/19 Status: Ordered levothyroxine Daily, 0 Refill(s) Start Date: 06/06/21 Status: Ordered lutein Oral, Daily, 0 Refill(s) Start Date: 05/04/19 Status: Ordered Refresh Eye-Both, BID, 0 Refill(s) Start Date: 04/28/18 Status: Ordered Zoloft Oral, Daily, 0 Refill(s) Start Date: 06/06/21 Status: Ordered Problem List Condition Confirmation Course Effective Dates Status Health atus Informant History of basal cell cancer Confirmed Active Arthritis Confirmed Active Hair loss disorder Confirmed Active Early dry stage nonexudative age-related macular degeneration of both eyes Confirmed Active Pseudophakia of both eyes [address] ZAPATA Procedures Procedure Date Related Diagnosis Body Site Status Phaco Emulsion Intraocular L ens Implant (Left) 1 07/18/17 Completed Phaco Emulsion Intraocular L ens Implant (Right) 2 06/20/17 Completed 1auto-populated from documented surgical case 2auto-populated from documented surgical case Social History Social History Type Response Smoking Status Never Smoker entered on: 05/15/17 Sex Implantable Device List Procedure Provider Procedure Date Device Type Site Unknown Unknown 07/18/17 Unknown Unknown Device Identifier Serial Number Lot or Batch Number Manufacturing Date Expiration Date Distinct Identification Code MRI Safety Implantable Status Assigning Authority Unknown [id number] none Unknown 11/03/21 Unknown Unknown Active Unknown Procedure Provider Procedure Date Device Type Site Unknown Unknown 06/20/17 Unknown Unknown Device Identifier Serial Number Lot or Batch Number Manufacturing Date Expiration Date Distinct Identification Code MRI Safety Implantable Status Assigning Authority Unknown [id number] Unknown Unknown 06/03/21 Unknown Unknown Active Unknown Patient Care team information Personnel Name: Lilibeth Gary Address: Address: [address]
--- OUTSIDE RECORDS SUMMARY | 2023-09-12 19:33 | XMS_ITS | Referral Summary ---
Author Name Unknown Organization Unknown Encounter 08/31/15 - 08/31/15 [facility] [address] [place] [address] [facility] Discharge Diagnosis: Jaw pain Discharge Disposition: Home Attending Physician: LE COKER DO Reason for Visit WOKE UP TO JAW TO L SHOULDER PAIN Vital Signs Most recent to oldest [Reference Range]: 1 2 Temperature Oral [35.8-37.3 DegC] 36.6 D egC (08/31/15 8:02 AM) 36.0 DegC (08/31/15 5:27 AM) Heart Rate [50-100 bpm] 73 bpm (08/31/15 8:02 AM) 76 bpm (08/31/15 5:27 AM) Respiratory Rate [11-21 br/min] 16 br/mi n (08/31/15 8:02 AM) 16 br/min (08/31/15 5:27 AM) Oxygen Saturation [89-101 %] 95 % (08/31/15 8:02 AM) 98 % (08/31/15 5:27 AM) Oxygen Delivery Room air (08/31/15 8:02 AM) Room air (08/31/15 5:27 AM) Cuff BP Systolic 121 mmHg (08/31/15 8:02 AM) 132 mmHg (08/31/15 5:27 AM) Cuff BP Diastolic 67 mmHg (08/31/15 8:02 AM) 66 mmHg (08/31/15 5:27 AM) Problem List No data available for this section Allergies, Adverse Reactions, Alerts No Known Medication Allergies Medications No data available for this section Immunizations No data available for this section Procedures Procedure Type Body Site Date of Procedure Related Diagnosis Collection of venous blood b y venipuncture 08/31/15 5:40 AM Collection of venous blood b y venipuncture 08/31/15 7:27 AM Functional Status COGNITIVE 10/28/15 Activity Tolerance Without distress or extreme fatigue Inet Orientation Oriented x 4 Inet Level of Consciousness Alert, Awake Skin Description Dry Skin Color Normal for ethnicity Affect/Behavior Calm Skin Temperature Warm Orientation Oriented x 4 Level of Consciousness Alert, Awake Hospital Discharge Instructions Follow Up Care With:Follow up with primary care provider Address:Unknown When:2 to 4 Days
--- OUTSIDE RECORDS SUMMARY | 2023-09-12 19:33 | XMS_ITS | Referral Summary ---
Author Name Unknown Organization [facility] Address [address] [place] [address] Encounter Date(s): 10/19/19 - 10/19/19 [facility] [address] [place] [address] Encounter Diagnosis Acute pharyngitis(Discharge Diagnosis) - 10/19/19 Discharge Disposition: Home Attending Physician: ERIC SILVERIO MD Vital Signs Most recent to oldest [Reference Range]: 1 2 Temperature Oral [35.8-37.3 DegC] 36.9 D egC (10/19/19 7:11 AM) Temperature Temporal [36.3-38 DegC] 36.8 DegC (10/19/19 6:53 AM) Heart Rate [50-100 bpm] 106 bpm *HI* (10/19/19 7:11 AM) 82 bpm (10/19/19 6:53 AM) Respiratory Rate [11-21 br/min] 18 br/mi n (10/19/19 7:11 AM) 20 br/min (10/19/19 6:53 AM) Oxygen Saturation [89-101 %] 99 % (10/19/19 7:11 AM) 94 % (10/19/19 6:53 AM) Oxygen Delivery Room air (10/19/19 7:11 AM) Blood Pressure 129/75mmHg (10/19/19 7:11 AM) 143/76mmHg (10/19/19 6:53 AM) Height 165 cm (10/19/19 7:11 AM) 165 cm (10/19/19 6:53 AM) CLINICALWEIGHT 55.95 kg (10/19/19 7:11 AM) 55.95 kg (10/19/19 6:53 AM) Dosing Weight Type Standing Scale (10/19/19 7:11 AM) Standing Scale (10/19/19 6:53 AM) Body Mass Index 20.55 kg/m2 (10/19/19 7:11 AM) 20.55 kg/m2 (10/19/19 6:53 AM) [place] Body Weight 56.91 kg (10/19/19 7:11 AM) 56.91 kg (10/19/19 6:53 AM) Height Obtained Estimated (10/19/19 7:11 AM) Estimated (10/19/19 6:53 AM) Problem List Diagnosis Diagnosis Type Effective Dates Health Status Clinical Service Informant Acute pharyngitis Discharge Diagnosis 10/19/19 Non-Specified Allergies, Adverse Reactions, Alerts No Known Allergies Social History Social History Type Response Smoking Status Never (less than 100 in lifetime) entered on: 10/19/19 Functional Status COGNITIVE 10/19/19 Level of Consciousness Alert, Awake, Appropriate for age Affect/Behavior Calm Hospital Discharge Instructions Patient Education 10/19/2019 06:49:49 Sore Throat, Ucwu-wi-Srbn You were seen in the emergency department today for evaluation of your sore throat. Your exam was reassuring and showed no evidence of likely acute bacterial infection, pneumonia, or other serious upper respiratory tract infection requiring urgent intervention, imaging studies or other treatment at this time. Your symptoms may be due to a viral infection, or due to reaction to dry weather as the seasons are changing. You can use salt water gargles, Chloraseptic spray, or lozenges to help improve your sore throat symptoms at home. At this time, your exam showed no evidence of pneumonia or other serious infections. You should follow-up with your primary care physician or return to the emergency department if you are having fever, chills, coughing, difficulty breathing, or other concerning symptoms. --------- Imaging studies in the Emergency Department are performed to evaluate for acute, life threatning and intervenable processes related to your symptoms. If you had imaging studies in the ED, you were likely informed of the findings relevant to your symptoms and workup. Imaging studies may sometimes reveal incidental findings, or findings that are not related to to your workup today. These findings may require follow-up and possible further imaging on a non-emergent basis. You should follow up withyour Primary Care Physician to review full results of your imaging studies, and to determine the need for further imaging or evaluation of any incidental findings. Sore Throat A sore throat is a painful, burning, sore, or scratchy feeling of the throat. There may be pain or tenderness when swallowing or talking. You may have other symptoms with a sore throat. These includecoughing, sneezing, fever, or a swollen neck. A sore throat is often the first sign of another sickness. These sicknesses may include a cold, flu, strep throat, or an infection called mono. Most sorethroats go away without medical treatment. HOME CARE ?Only take medicine as told by your doctor. ?Drink enough fluids to keep your pee (urine) clear or pale yellow. ?Rest as needed. ?Try using throat sprays, lozenges, or suck on hard candy (if older than 4 years or as told). ?Sip warm liquids, such as broth, herbal tea, or warm water with honey. Try sucking on frozenice pops or drinking cold liquids. ?Rinse the mouth (gargle) with salt water. Mix 1 teaspoon salt with 8 ounces of water. ?Do not smoke. Avoid being around others when they are smoking. ?Put a humidifier in your bedroom at night to moisten the air. You can also turn on a hot shower and sit in the bathroom for 5???10 minutes. Be sure the bathroom door is closed. GET HELP RIGHT AWAY IF: ?You have trouble breathing. ?You cannot swallow fluids, soft foods, or your spit (saliva). ?You have more puffiness (swelling) in the throat. ?Your sore throat does not get better in 7 days. ?You feel sick to your stomach (nauseous) and throw up (vomit). ?You have a fever or lasting symptoms for more than 2???3 days. ?You have a fever and your symptoms suddenly get worse. MAKE SURE YOU: ?Understand these instructions. ?Will watch your condition. ?Will get help right away if you are not doing well or get worse. This information is not intended to replace advice given to you by your health care provider. Make sure you discuss any questions you have with your health care provider. Document Released: 07/30/2009 Document Revised: 07/15/2013 Document Reviewed: 06/28/2013 [employer] Interactive Patient Education ??2016 [employer] Follow Up Care 10/19/2019 06:49:49 With:Return to Emergency Department Address:Unknown When:As needed With:Follow up with primary care provider Address:Unknown When:Call for next available appointment
--- NOTE | 2023-09-12 19:45 | DI.CT_ITS ---
Exam(s) CT HEAD CERVICAL SPINE WO EXAM: CT HEAD CERVICAL SPINE WO CLINICAL HISTORY: fall, scalp laceration. TECHNIQUE: Imaging Protocol: Axial computed tomography images with coronal and sagittal reformatted images were created and reviewed COMPARISON: No exams were available for comparison FINDINGS: CT Head: Ventricles and Extra axial spaces: Normal in size and morphology for the patient's age. Hemorrhage: None. Cerebral parenchyma: Atrophy. Old right basal ganglion lacunar infarct. White matter changes of sma ll vessel disease. Midline shift: None. Brainstem/Cerebellum: For age. Calvarium: Normal. Visualized Paranasal sinuses/Mastoids: Mucous retention cyst maxillary sinuses. Soft Tissues: Posterior right scalp laceration. CT Cervical Spine: Bones: No acute fracture or subluxation. Degenerative changes. Soft Tissues: Unremarkable. Lung Apices: Clear. IMPRESSION: 1. No acute intracranial process. 2. No acute fracture or subluxation in the cervical spine. RADIATION DOSE DELIVERED: Total DLP Total DLP DATA REPOSITORY: All CT scans at this facility are submitted to the National Radiology Data Registry (NRDR) Dose Index Registry (DIR) with the [employer] (ACR). RADIATION OPTIMIZATION: All CT scans at this facility use at least one of these dose optimization te chniques: automated exposure control; mA and/or kV adjustment per patient size (includes targeted exa ms where dose is matched to clinical indication); or iterative reconstruction.
--- NOTE | 2023-09-12 21:49 | DI.VRAD_ITS ---
PROCEDURE INFORMATION: Exam: CT Head Without Contrast Exam date and time: 09/12/2023 9:30 PM Age: 83 years old Clinical indication: Injury or trauma; Consciousness not specified; Without residual foreign body; Patient HX: Fall, scalp laceration TECHNIQUE: Imaging protocol: Computed tomography of the head without contrast. COMPARISON: CT HEAD WITHOUT CONTRAST 05/29/2018 12:58 PM FINDINGS: Brain: Mild volume loss. Chronic right basal ganglia lacunar infarction No hemorrhage. Moderate white matter disease No mass effect. Cerebral ventricles: No ventriculomegaly. Paranasal sinuses: Bilateral maxillary sinus polyps\retention cysts are noted. No fluid levels. Mastoid air cells: Visualized mastoid air cells are well aerated. Bones/joints: Unremarkable. No acute fracture. Soft tissues: Right occipital scalp laceration. IMPRESSION: No acute intracranial hemorrhage noted. PROCEDURE INFORMATION: Exam: CT Cervical Spine Without Contrast Exam date and time: 09/12/2023 9:30 PM Age: 83 years old Clinical indication: Injury or trauma; Consciousness not specified; Without residual foreign body; Patient HX: Fall, scalp laceration TECHNIQUE: Imaging protocol: Computed tomography of the cervical spine without contrast. COMPARISON: CT HEAD WITHOUT CONTRAST 05/29/2018 12:58 PM FINDINGS: Bones/joints: No acute fracture. Loss of cervical lordosis is presumably on a degenerative basis.No significant disc bulge or herniation. No severe spinal canal stenosis. No significant neural foraminal narrowing. Lungs: Calcified right upper lobe granulomas Soft tissues: Unremarkable. IMPRESSION: No acute findings. Dictated and Authenticated by: Benson Higgins MD. Ordering:CARLA House MD
--- NOTE | 2023-09-12 21:57 | ED.GENADUL_ITS ---
Discharge Plan Disposition Patient Disposition: Home Condition: Good Discharge Details Clinical Impression: Head injury Primary Care Provider: Aspen Doe ED Provider: Lacy Cota Home Meds and New Rx's Prescriptions: No Action sertraline 50 mg tablet 75 mg PO DAILY 90 Days Qty: 180 3RF loratadine [Claritin] 10 mg tablet 10 mg PO DAILY liothyronine 5 mcg tablet 5 mcg PO DAILY lithium orate 5 mg PO DAILY memantine 5 mg tablet 20 mg PO BID PreserVision AREDS-2 250-90-40-1 mg capsule 1 tab PO BID calcium carb-vitamin D3-vit K2 500 mg calcium- 200 unit-90 mcg tablet 1 tab PO DAILY [place] 3-6-9 1,200 mg capsule 1 cap PO TID levothyroxine 25 mcg capsule 25 mcg PO DAILY Qty: 90 3RF Discharge Instructions Instructions: Laceration (ED), Head Injury (ED) Additional Instructions: Tylenol or ibuprofen over the counter for pain; follow the directions on the bottle. Call primary care doctor tomorrow to schedule an appointment to follow up on your visit today. Return to the emergency department for new or worsening symptoms including vomiting, numbness/weakness, or if you have any other concerns. Referrals: Aspen Doe NP [Primary Care Provider] - Medical Decision Making 83yo F with hx of HTN, dementia, presenting with her family after a witnessed fall. History from patient and family at bedside. She was turning, fell backwards, struck the back of her head on a door handle, and then fell onto the floor. No LOC or AC. Acting like her usual self. Vital signs reassuring on arrival, on exam she has a laceration to back of scalp, bleeding controlled prior to arrival. No focal neurologic deficits. No indication of extremity, thoracic, or abdominal/pelvic trauma on exam; would not pursue imaging or labs. Patient examined around clothing at family's request, they did not want her changed into a gown as they anticipate this would be difficult for her. Buttocks not examined; family state they will assess at home when they get patient ready for bed. Head/c spine CT independently reviewed, no intracranial bleed on my view, agree with radiology read below. Laceration repaired with hair apposition and skin glue after shared decision making with family regarding repair methods, tolerated well. Discharged home; discharge instructions including return precautions were reviewed with family who verbalized understanding. All questions were answered and they are in full agreement with the plan. Imaging Data Radiologic Study: Imaging: CT Scan Radiologist's impression: IMPRESSION: No acute intracranial hemorrhage noted. IMPRESSION: No acute findings. HPI General Mode of arrival: ambulatory . Date/Time Provider Initiated Documentation: 09/12/23 19:37 . Information obtained by: patient and family . HPI Narrative: 83yo F with hx of HTN, dementia, presenting with her family after a witnessed fall. She was turning, fell backwards, struck the back of her head on a door handle, and then fell onto the floor on her buttocks and then backwards onto her back. No LOC or AC. Acting like her usual self. Patient denies pain, family states she does not seem to be in pain. Laceration to back of scalp, bleeding controlled prior to arrival. Ambulating at baseline per family. Patient denies pain, numbness, or weakness. She was in her usual state of health prior to this event; no fevers, chills, rash, vomiting, abdominal pain, lightheadedness, dysuria, or other concerns. Related Data Home Medications Medication Instructions Recorded Confirmed calcium carbonate 500 mg-vitamin 1 tab PO DAILY 03/28/23 09/12/23 D3 200 unit-vitamin K2 90 mcg tablet fish, borage, flaxseed oils-omega 1 cap PO TID 03/28/23 09/12/23 3,6,9 comb no.1 1,200 mg capsule ([place] 3-6-9) vit C 250 mg-vit E 90 mg-zinc 40 1 tab PO BID 03/28/23 09/12/23 mg-copper 1 [id number]-noeefz capsule (PreserVision AREDS-2) sertraline 50 mg tablet 75 mg (1.5 x 50 mg) PO DAILY 90 04/02/23 09/06/23 days #180 tabs loratadine 10 mg tablet (Claritin) 10 mg PO DAILY 07/12/23 09/12/23 liothyronine 5 mcg tablet 5 mcg PO DAILY 08/08/23 09/12/23 lithium orate 5 mg PO DAILY 08/08/23 09/12/23 memantine 5 mg tablet 20 mg PO BID 08/08/23 09/12/23 levothyroxine 25 mcg capsule 25 mcg PO DAILY #90 caps 08/19/23 09/12/23 Previous Rx's Medication Instructions Recorded sertraline 50 mg tablet 75 mg (1.5 x 50 mg) PO DAILY 90 04/02/23 days #180 tabs levothyroxine 25 mcg capsule 25 mcg PO DAILY #90 caps 08/19/23 Allergies Allergy/AdvReac Type Severity Reaction Status Date / Time acetaminophen Allergy Intermediate Skin Rash Unverified 09/12/23 19:31 cephalexin [From Keflex] Allergy Unknown Unverified 09/12/23 19:31 amoxicillin trihydrate AdvReac Intermediate Diarrhea Unverified 09/12/23 19:31 [From Augmentin] potassium clavulanate AdvReac Intermediate Diarrhea Unverified 09/12/23 19:31 [From Augmentin] General Stated Complaint: HeadInjury CHERI: 3 Review of Systems Narrative: see HPI PFSH All Active Problems (Updated 09/12/23 @ 22:00 by Lacy Cota MD) Head injury (Acute) Upper respiratory infection, acute (Acute) Advanced care planning/counseling discussion (Acute) Swallowing difficulty (Acute) Falls (Acute) Ambulatory dysfunction (Acute) Palliative care patient (Acute) Hypertension (Chronic) Hearing loss (Acute) Chronic low back pain (Chronic) Hip pain, left (Acute) Nocturnal leg cramps (Acute) Snoring (Acute) Insomnia (Acute) Dementia (Chronic) AD vs PSP vs CBS per [facility] neurology 07/11/23 Cataract of left eye (Acute 01/28/17) Low back pain (Chronic 08/02/14) Malignant melanoma of skin (Chronic) 03/13 DR. GUZMAN OF [place], [place] CONSULT: MELANOMA LEFT UPPER BACK; SURGERY DATE TO BE SCHEDULED. 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 Maternal Grandfather No problems noted. Paternal Grandfather No problems noted. Maternal Grandmother No problems noted. Paternal Grandmother No problems noted. Son No problems noted. Daughter No problems noted. Daughter No problems noted. Social History Smoking/Tobacco Use Status: Never Second Hand Exposure: No Smoking risk assessment performed?: Yes Alcohol Intake: current Alcohol Intake frequency: a few times a week Alcohol type: wine Drug use: Never Substance use type: does not use Caregiver/Support person: No Household members: significant other and children Housing: house Communication Needs: Hard of Hearing, Corrective Lenses and Cannot Read Pets and animals: No Current gender identity: decline to answer What is your relationship status?: living with partner How often do you talk on the phone with friends or family?: decline to answer How often do you get together with friends or relatives?: decline to answer How often do you attend baptism or yarsani services?: decline to answer Do you belong to any clubs or organized social groups?: decline to answer Panel score (0-1 are the most socially isolated patients): 1 What type of physical activity do you participate in: walking Frequency: daily Teri/Druze: None Special teri needs: No Seatbelt use: always Drive intox or ride w/intox armor reconnaissance vehicle driver: No Exam Narrative Exam Narrative: GENERAL: Alert, in no acute distress. SKIN: Warm and well perfused. HEAD: 1.5cm linear laceration to posterior scalp, hemostatic. Otherwise atraumatic, normocephalic without edema, discoloration or evidence of trauma. Facial bones without deformities or tenderness. EYES: PERRL. No scleral icterus or conjunctival injection. Extraocular muscles intact without nystagmus or diplopia. No proptosis or enophthalmos. NECK: Trachea midline. No discolorations or edema. CV: Regular rate and rhythm, Normal s1 and s2. No murmurs, rubs, or gallops. PV: Radial pulses 2+ bilaterally and symmetric. 2+ capillary refill. No extremity edema. CHEST: No abrasions or ecchymosis. Chest symmetric with respirations. No chest wall tenderness. Lungs are clear to auscultation bilaterally. ABDOMEN: No ecchymosis or abrasions. Soft, nondistended, nontender. BACK: No abrasions, skin openings, or ecchymosis. Spine without bony tenderness, no step offs. PELVIC: Pelvis stable, nontender to lateral compression MSK: No gross deformities. Tolerates full range of motion of extremities without tenderness. NEURO: Alert, oriented to person. GCS 14. Sensation grossly intact. Moves all extremities freely. Course Vital Signs Vital signs: Vital Signs Temperature 36.2 C L 09/12/23 19:28 Pulse 80 09/12/23 19:28 Respiratory Rate 16 09/12/23 19:28 Blood Pressure 144/76 H 09/12/23 19:28 Pulse Oximetry 96 09/12/23 19:28 Temperature 36.2 C L 09/12/23 19:28 Pulse 80 09/12/23 19:28 Respiratory Rate 16 09/12/23 19:28 Respiratory Effort Normal 09/12/23 19:32 Blood Pressure 144/76 H 09/12/23 19:28 Blood Pressure Position Sitting 09/12/23 19:28 Pulse Oximetry 96 09/12/23 19:28 Procedures Laceration Laceration 1: Site: scalp Size (cm): 1.5 Description: linear Depth: simple, single layer Pre-repair: wound explored and irrigated extensively Skin layer closed with: other (hair apposition, skin glue)
[2023-09-12 22:28] VITALS: BP 130/64; PULSE 78; RESP 16; O2SAT 97
[2023-09-12] MEDS: Ibuprofen 100 MG/5 ML CUP 600 MG PO (22:36)
== END 2023-09-12 22:47 | disposition home or self-care (01) ==
PROVIDERS: Emergency Provider Student in an Organized Health Care Education/Training Program; PCP Nurse Practitioner Family
DX: S01.01XA Laceration without foreign body of scalp, initial encounter (principal); I10 Essential (primary) hypertension; E03.9 Hypothyroidism, unspecified; F03.90 Unspecified dementia, unspecified severity, without behavioral disturbance, psychotic disturbance, mood disturbance, and anxiety; W18.09XA Striking against other object with subsequent fall, initial encounter; Y93.01 Activity, walking, marching and hiking; Y92.011 Dining room of single-family (private) house as the place of occurrence of the external cause
CPT/HCPCS: 12001; 99284; 70450; 72125

== ENCOUNTER 2023-11-23 22:57 | Emergency (ER) | payer MEDICARE, BC, SELFPAY ==
[2023-11-23 23:15] VITALS: BP 148/81; PULSE 76; RESP 18; TEMP 36.8; O2SAT 98
--- NOTE | 2023-11-24 00:18 | ED.GENADUL_ITS ---
HPI General Date/Time Provider Initiated Documentation: 11/24/23 00:17 . HPI Narrative: 83-year-old female with advancing dementia, who is currently DNR/DNI and a hospice patient, presents today with the family after a fall. Patient was holding a picture frame when she fell forward, hitting her right cheek and right hand onto the ground causing a laceration of the right hand secondary to the rings that were on her finger. No glass from the picture. The hospice care team was consulted, it was recommended that the patient come to the ER for suturing, but after lengthy discussion the recommendations from the hospice team were for no additional assessment given the patient's previous wishes and her hospice plan. Patient was then brought to the ER for further assessment. No other complaints at this time. Related Data Home Medications Medication Instructions Recorded Confirmed calcium carbonate 500 mg-vitamin 1 tab PO DAILY 03/28/23 11/23/23 D3 200 unit-vitamin K2 90 mcg tablet fish, borage, flaxseed oils-omega 1 cap PO TID 03/28/23 11/23/23 3,6,9 comb no.1 1,200 mg capsule ([place] 3-6-9) vit C 250 mg-vit E 90 mg-zinc 40 1 tab PO BID 03/28/23 11/23/23 mg-copper 1 th-tutuxh-yizmfw capsule (PreserVision AREDS-2) sertraline 50 mg tablet 75 mg (1.5 x 50 mg) PO DAILY 90 04/02/23 11/23/23 days #180 tabs loratadine 10 mg tablet (Claritin) 10 mg PO DAILY 07/12/23 11/23/23 liothyronine 5 mcg tablet 5 mcg PO DAILY 08/08/23 11/23/23 lithium orate 5 mg PO DAILY 08/08/23 11/23/23 memantine 5 mg tablet 20 mg PO BID 08/08/23 11/23/23 levothyroxine 25 mcg capsule 25 mcg PO DAILY #90 caps 08/19/23 11/23/23 polyethylene glycol 3350 17 17 g PO BID PRN 11/08/23 11/23/23 gram/dose oral powder (Miralax) quetiapine 25 mg tablet (Seroquel) 25 - 50 mg (1 - 2 x 25 mg) PO QHS 11/08/23 11/23/23 #60 tabs sennosides 8.6 mg capsule (senna) 8.6 mg PO BID PRN constipation #60 11/08/23 11/23/23 caps Previous Rx's Medication Instructions Recorded sertraline 50 mg tablet 75 mg (1.5 x 50 mg) PO DAILY 90 04/02/23 days #180 tabs levothyroxine 25 mcg capsule 25 mcg PO DAILY #90 caps 08/19/23 quetiapine 25 mg tablet (Seroquel) 25 - 50 mg (1 - 2 x 25 mg) PO QHS 11/08/23 #60 tabs sennosides 8.6 mg capsule (senna) 8.6 mg PO BID PRN constipation #60 11/08/23 caps Allergies Allergy/AdvReac Type Severity Reaction Status Date / Time acetaminophen Allergy Intermediate Skin Rash Unverified 11/23/23 23:21 cephalexin [From Keflex] Allergy Unknown Unverified 11/23/23 23:21 amoxicillin trihydrate AdvReac Intermediate Diarrhea Unverified 11/23/23 23:21 [From Augmentin] potassium clavulanate AdvReac Intermediate Diarrhea Unverified 11/23/23 23:21 [From Augmentin] General Stated Complaint: Fall/Non TraumaCriteria CHERI: 3 Review of Systems All systems reviewed & are unremarkable except as noted in HPI and below Exam Narrative Exam Narrative: 1.Const: Well-nourished, Well-developed, appearing stated age 2.Eyes: PERRL, no conjunctival injection, and symmetrical lids. 3.ENT: Atraumatic external nose and ears. Moist MM. Neck: Symmetric, trachea midline, No thyromegaly. There is no evidence of raccoon eyes, wilson sign, CSF rhinorrhea, mastoid tenderness, cranial crepitus, hemotympanum, exophthalmos, or hyphema. Patient demonstrates intact dentition with no signs of tooth avulsion or fracture, no signs of jaw deformity, no evidence of a LeFort's fracture, with an intact palate, nose. Patient does have notable bruise hematoma and swelling over the right lower orbit/zygomatic arch area. There is no evidence of a nasal septal hematoma. No proptosis. Jaw closes symmetrically. Airway is clear. 4.CVS: +S1/S2, No murmurs or gallops. Peripheral pulses 2+ and equal in all extremities. Brisk capillary refill in all extremities. 5.RESP: Unlabored respiratory effort. Clear to auscultation bilaterally. No wheezes rales or rhonchi 6.GI: Soft, Nontender/Nondistended, No hepatosplenomegaly. No guarding or rebound. 7.MSK: Normocephalic/Atraumatic, Extremities w/o deformity. No cyanosis or clubbing, Normal movement of all extremities. Patient does have some mild tenderness on movement of her right pinky. 8.Skin: Patient demonstrates now shaped laceration over the right hand between the fourth and fifth digit at the proximal aspect of the finger. It is over the dorsal aspect. No deep tendon involvement. 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 Sensation grossly intact, no focal neurologic deficits. 10.Psych: (AAO) x0. Appropriate mood and affect Course Vital Signs Vital signs: Vital Signs Temperature 36.8 C 11/23/23 23:15 Pulse 76 11/23/23 23:15 Respiratory Rate 18 11/23/23 23:15 Blood Pressure 148/81 H 11/23/23 23:15 Pulse Oximetry 98 11/23/23 23:15 Temperature 36.8 C 11/23/23 23:15 Pulse 76 11/23/23 23:15 Respiratory Rate 18 11/23/23 23:15 Blood Pressure 148/81 H 11/23/23 23:15 Blood Pressure Position Sitting 11/23/23 23:15 Pulse Oximetry 98 11/23/23 23:15 Oxygen Delivery Method Room Air 11/23/23 23:15 Oxygen Flow Rate 0 11/23/23 23:15 Procedures Laceration Laceration 1: Site: hand Side (If applicable): right Size (cm): 3 Description: linear Depth: simple, single layer Local Anesthetic: Lidocaine 1% Amount of anesthesia used (mL): 4 Pre-repair: wound explored, irrigated extensively and deep structures in tact Skin layer closed with: nylon Size (cm): 4-0 Number of sutures: 4 Technique: simple, interrupted Medical Decision Making 83-year-old female with advancing dementia, who is currently DNR/DNI and a hospice patient, presents today with the family after a fall. Patient was holding a picture frame when she fell forward, hitting her right cheek and right hand onto the ground causing a laceration of the right hand secondary to the rings that were on her finger. No glass from the picture. The hospice care team was consulted, it was recommended that the patient come to the ER for suturing, but after lengthy discussion the recommendations from the hospice team were for no additional assessment given the patient's previous wishes and her hospice plan. Patient was then brought to the ER for further assessment. No other complaints at this time. Exam demonstrates evidence of a large hematoma over the right lower orbit, no evidence of entrapment optically. No other signs of trauma aside for an L- shaped laceration over the dorsal aspect of the fifth digit at the proximal component. I had a long discussion with family discussed risk and benefits of imaging, as well as the risks and benefits of holding off on imaging. Family after long shared decision-making discussion and process is decided to hold off on any CT scans or x-rays at this time. No other signs of trauma on exam otherwise. Patient looks otherwise stable. The right hand was cleaned, 4 simple interrupted sutures were placed. Family did asked that we take off the 2 rings that were on that hand as well because of potential swelling. These were removed without complication and given to the family. Patient will be discharged home. Discussed red flags for which to return. I have extensively reviewed the treatment plan and discharge instructions with the patient and their family. I have addressed all patient concerns at this time. The patient and family was made aware of what symptoms to monitor for that would warrant a return to the emergency department. Discussed the plan with the patient and family, they demonstrate verbal understanding and agreement with our assessment and plan at this time. The documentation in this chart was dictated using [employer] dictation software. Please excuse any dictation errors. Quality:SDOH Health Related Social Needs: No Data to Display PFSH All Active Problems Laceration of hand, right (Acute) Fall (Acute) Contusion of face (Acute) Dependence on care provider (Acute) Upper respiratory infection, acute (Acute) Advanced care planning/counseling discussion (Acute) Swallowing difficulty (Acute) Falls (Acute) Ambulatory dysfunction (Acute) Palliative care patient (Acute) Hypertension (Chronic) Hearing loss (Acute) Chronic low back pain (Chronic) Hip pain, left (Acute) Nocturnal leg cramps (Acute) Snoring (Acute) Insomnia (Acute) Dementia (Chronic) AD vs PSP vs CBS per [facility] neurology 07/11/23 Cataract of left eye (Acute 01/28/17) Low back pain (Chronic 08/02/14) Malignant melanoma of skin (Chronic) 03/13 DR. GUZMAN OF [place], [place] CONSULT: MELANOMA LEFT UPPER BACK; SURGERY DATE TO BE SCHEDULED. 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 Maternal Grandfather No problems noted. Paternal Grandfather No problems noted. Maternal Grandmother No problems noted. Paternal Grandmother No problems noted. Son No problems noted. Daughter No problems noted. Daughter No problems noted. Social History Smoking/Tobacco Use Status: Never Second Hand Exposure: No Smoking risk assessment performed?: Yes Alcohol Intake: current Alcohol Intake frequency: a few times a week Alcohol type: wine Drug use: Never Substance use type: does not use Caregiver/Support person: No Household members: significant other and children Housing: house Communication Needs: Hard of Hearing, Corrective Lenses and Cannot Read Pets and animals: No Current gender identity: decline to answer What is your relationship status?: living with partner How often do you talk on the phone with friends or family?: decline to answer How often do you get together with friends or relatives?: decline to answer How often do you attend baptist or islam services?: decline to answer Do you belong to any clubs or organized social groups?: decline to answer Panel score (0-1 are the most socially isolated patients): 1 What type of physical activity do you participate in: walking Frequency: daily Teri/Baptist: None Special teri needs: No Seatbelt use: always Drive 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 or ride w/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 Discharge Plan Disposition Patient Disposition: Home Discharge Details Clinical Impression: Contusion of face, Fall, Laceration of hand, right Primary Care Provider: Aspen Doe ED Provider: Carmelo Gilbert Home Meds and New Rx's Prescriptions: No Action sertraline 50 mg tablet 75 mg PO DAILY 90 Days Qty: 180 3RF loratadine [Claritin] 10 mg tablet 10 mg PO DAILY liothyronine 5 mcg tablet 5 mcg PO DAILY lithium orate 5 mg PO DAILY memantine 5 mg tablet 20 mg PO BID polyethylene glycol 3350 [Miralax] 17 gram/dose powder 17 g PO BID PRN senna 8.6 mg capsule 8.6 mg PO BID PRN (Reason: constipation) Qty: 60 0RF quetiapine [Seroquel] 25 mg tablet 25 - 50 mg PO QHS Qty: 60 3RF PreserVision AREDS-2 250-90-40-1 mg capsule 1 tab PO BID calcium carb-vitamin D3-vit K2 500 mg calcium- 200 unit-90 mcg tablet 1 tab PO DAILY [place] 3-6-9 1,200 mg capsule 1 cap PO TID levothyroxine 25 mcg capsule 25 mcg PO DAILY Qty: 90 3RF Discharge Instructions Instructions: Care For Your Stitches (ED), Contusion in Adults (ED) Additional Instructions: Please leave the sutures in for the next 7 to 10 days. They may then be removed after this. Please take ibuprofen as needed for pain. At this time we have decided to hold off on any additional imaging out of concern and respect for the patient's wishes. If you have any questions do not hesitate to contact us or your hospice nurse. If you notice any worsening of your symptoms, or any new symptoms such as vomiting, diarrhea, fever, chills, shortness of breath, chest pain, numbness, weakness, or fainting , please return immediately to the emergency department for reevaluation. Please follow up with your primary care provider as soon as possible for reassessment and reevaluation. As always, it was a pleasure participating in your medical care today. Referrals: Aspen Doe NP [Primary Care Provider] -
[2023-11-24 00:32] VITALS: BP 152/84; PULSE 76; RESP 18; TEMP 36.8
== END 2023-11-24 00:32 | disposition home or self-care (01) ==
PROVIDERS: Emergency Provider Student in an Organized Health Care Education/Training Program; PCP Nurse Practitioner Family
DX: S00.83XA Contusion of other part of head, initial encounter (principal); S61.411A Laceration without foreign body of right hand, initial encounter; F03.90 Unspecified dementia, unspecified severity, without behavioral disturbance, psychotic disturbance, mood disturbance, and anxiety; I10 Essential (primary) hypertension; Z66 Do not resuscitate; W18.30XA Fall on same level, unspecified, initial encounter
CPT/HCPCS: 12002; 99283